=== PATIENT | male | born 1945 | race Caucasian/White ===

== ENCOUNTER 2016-09-30 12:32 | Emergency (ER) | payer MEDICARE, BC ==
[2016-09-30] MEDS ORDERED: DIPH/PERTUSS(ACELL)/TETANUS VAC/PF 0.5 ML SYR (>=10YO) IM ONE (13:14)
--- NOTE | 2016-09-30 13:16 | ER Document Report ---
ED Medical Screen (RME) - General Chief Complaint: Laceration Stated Complaint: HAND LACERATION Time Seen by Provider: 09/30/16 13:12 Mode of Arrival: Ambulatory Information source: Patient Notes: 71 yo male fell backwards with arms outstretched, hyperextending all the fingers and causing osei laceration. Tetanus is not current. TRAVEL OUTSIDE OF THE [place] IN LAST 30 DAYS: No - Related Data Allergies/Adverse Reactions: No Known Allergies Allergy (Unverified 09/30/16 13:00) Past Medical History Renal/ Medical History: Denies: Hx Peritoneal Dialysis Physical Exam - Vital signs Vitals: Temp Pulse Resp BP Pulse Ox 98.1 F 78 12 142/90 H 96 09/30/16 12:37 09/30/16 12:37 09/30/16 12:37 09/30/16 12:37 09/30/16 12:37 Course - Vital Signs Vital signs: Temp Pulse Resp BP Pulse Ox 98.1 F 78 12 142/90 H 96 09/30/16 12:37 09/30/16 12:37 09/30/16 12:37 09/30/16 12:37 09/30/16 12:37
--- NOTE | 2016-09-30 13:58 | ER Document Report ---
ED Wound - General Chief Complaint: Laceration Stated Complaint: HAND LACERATION Time Seen by Provider: 09/30/16 13:12 Mode of Arrival: Ambulatory Information source: Patient Notes: 71 yo male tripped on folded chair legs, fell backwards with arms outstretched, hyperextending all the right fingers and causing osei laceration. Tetanus is not current. TRAVEL OUTSIDE OF THE [place] IN LAST 30 DAYS: No - Related Data Allergies/Adverse Reactions: No Known Allergies Allergy (Unverified 09/30/16 13:00) Past Medical History - General Information source: Patient - Social History Smoking Status: Never Smoker Frequency of alcohol use: None Drug Abuse: None Lives with: Spouse/Significant other Family History: Reviewed & Not Pertinent Patient has suicidal ideation: No Patient has homicidal ideation: No - Past Medical History Cardiac Medical History: Reports: Hx Atrial Fibrillation - xeralto, Hx Hypertension Renal/ Medical History: Denies: Hx Peritoneal Dialysis Past Surgical History: Reports: Hx Cardiac Catheterization - ablation, Hx Orthopedic Surgery - knee Review of Systems - Review of Systems Constitutional: No symptoms reported EENT: No symptoms reported Cardiovascular: No symptoms reported Respiratory: No symptoms reported Gastrointestinal: No symptoms reported Genitourinary: No symptoms reported Male Genitourinary: No symptoms reported Musculoskeletal: See HPI Skin: See HPI Hematologic/Lymphatic: No symptoms reported Neurological/Psychological: No symptoms reported Physical Exam - Vital signs Vitals: Temp Pulse Resp BP Pulse Ox 98.1 F 78 12 142/90 H 96 09/30/16 12:37 09/30/16 12:37 09/30/16 12:37 09/30/16 12:37 09/30/16 12:37 Interpretation: Normal - General General appearance: Appears well, Alert - HEENT Head: Normocephalic, Atraumatic Eyes: Normal Pupils: PERRL Neck: Supple - Respiratory Respiratory status: No respiratory distress Chest status: Nontender Breath sounds: Normal Chest palpation: Normal - Cardiovascular Rhythm: Regular Heart sounds: Normal auscultation Murmur: No - Back Back: Normal, Nontender - Extremities General upper extremity: Normal inspection, Nontender, Normal color, Normal ROM , Normal temperature General lower extremity: Normal inspection, Nontender, Normal color, Normal ROM , Normal temperature, Normal weight bearing. No: Pura's sign Hand: Tender - 8 cm laceration right palm over the 2-4th MCP joints, FROM , N/V intact, all flexor tendons are intact, Abrasion - left dorsal hand, FROM, Laceration - Neurological Neuro grossly intact: Yes Cognition: Normal Orientation: AAOx4 [place] Coma Scale Eye Opening: Spontaneous [place] Coma Scale Verbal: Oriented [place] Coma Scale Motor: Obeys Commands [place] Coma Scale Total: 15 Speech: Normal Motor strength normal: LUE, RUE, LLE, RLE Sensory: Normal - Psychological Associated symptoms: Normal affect, Normal mood - Skin Skin Temperature: Warm Skin Moisture: Dry Skin Color: Normal Location of irregularity: Extremities Notes: see above Course - Re-evaluation Re-evalutation: 09/30/16 xray is negative per radiologist - Vital Signs Vital signs: Temp Pulse Resp BP Pulse Ox 98.1 F 69 17 128/71 H 98 09/30/16 12:37 09/30/16 16:13 09/30/16 16:13 09/30/16 16:13 09/30/16 16:13 Procedures - Laceration/Wound Repair Right Hand Time completed: 15:37 Wound length (cm): 8 Wound's Depth, Shape: Linear, Other - to sub q adipose only, no tendon exposure Anesthetic type: 1% Lidocaine Volume Anesthetic (mLs): 11 Wound explored: Clean Irrigated w/ Saline (mLs): 500 Wound Repaired With: Sutures Suture Size/Type: 3:0, Nylon Number of Sutures: 9 - vertical mattress Layer Closure?: No Post-procedure NV exam normal: Yes Complications: Yes Discharge - Discharge Clinical Impression: right hand laceration repair Condition: Good Disposition: HOME, SELF-CARE Instructions: Tetanus Immunization Given ([facility]), Laceration Care ([facility]), Antibiotic Ointment Protection ([facility]) Additional Instructions: elevate today keep the dressing on for 2 days unless increased pain, concerns keep clean and dry watch for signs of infection, red, hot, pus, swelling suture removal in 12 days Please complete the patient satisfaction survey if you get one, and return it.. If you do not receive a survey, then you can go to the [facility] website, [email or web address] and place your comments about your very good care. Thank you very much. It was a pleasure being your medical provider today. Prescriptions: Hydrocodone Bit/Acetaminophen [Hydrocodon-Acetaminophen 5-325] 1 each PO Q4HP PRN #15 tablet PRN Reason: Referrals: GENE NAVARRO MD [Primary Care Provider] - Follow up as needed
[2016-09-30] MEDS ORDERED: LIDOCAINE 1% INJ-PF (10 MG/ML) 30 ML SDV INJ ONE (14:01)
--- NOTE | 2016-09-30 14:38 | RADIOLOGY REPORT (SQ) ---
EXAM DESCRIPTION: HAND RIGHT 3 VIEWS COMPLETED DATE/TIME: 09/30/2016 1:49 pm REASON FOR STUDY: FOOSH, laceration, MC swelling COMPARISON: None. EXAM PARAMETERS: NUMBER OF VIEWS: Three views. TECHNIQUE: AP, lateral and oblique radiographic images acquired of the right hand. LIMITATIONS: None. FINDINGS: MINERALIZATION: Normal. BONES: No acute fracture or dislocation. No worrisome bone lesions. JOINTS: No effusions. SOFT TISSUES: No soft tissue swelling. No foreign body. OTHER: No other significant finding. IMPRESSION: NO RADIOGRAPHIC EVIDENCE OF ACUTE INJURY. TECHNICAL DOCUMENTATION: JOB ID: [id number] [employer]- All Rights Reserved
[2016-09-30 16:14] VITALS: BP 128/71
== END 2016-09-30 16:13 | disposition home or self-care (01) ==
LOC: ER 12:32
PROC: 0HQFXZZ Repair Right Hand Skin, External Approach (ICD-10-PCS; principal; 2016-09-30)
DX: S61.411A Laceration without foreign body of right hand, initial encounter (principal); W01.0XXA Fall on same level from slipping, tripping and stumbling without subsequent striking against object, initial encounter; Z23 Encounter for immunization; I48.91 Unspecified atrial fibrillation; I10 Essential (primary) hypertension; Z79.02 Long term (current) use of antithrombotics/antiplatelets
CPT/HCPCS: 12004; 99283; 90471; 73130; 90715; J3490

== ENCOUNTER 2017-02-24 17:55 | Emergency (ER) | payer MEDICARE, BC ==
[2017-02-24 18:07] VITALS: BP 126/84
--- NOTE | 2017-02-24 19:35 | RADIOLOGY REPORT (SQ) ---
EXAM DESCRIPTION: FOREARM LEFT COMPLETED DATE/TIME: 02/24/2017 7:17 pm REASON FOR STUDY: arm pain. COMPARISON: None. NUMBER OF VIEWS: Two views. TECHNIQUE: Two radiographic images acquired of the left forearm, including elbow and wrist in at [address] one projection. LIMITATIONS: None. FINDINGS: MINERALIZATION: Normal. BONES: No acute fracture. No worrisome bone lesions. SOFT TISSUES: No obvious swelling or foreign body. OTHER: No other significant finding. IMPRESSION: NEGATIVE STUDY OF THE LEFT FOREARM. NO RADIOGRAPHIC EVIDENCE OF ACUTE INJURY. TECHNICAL DOCUMENTATION: JOB ID: [id number] [employer]- All Rights Reserved
--- NOTE | 2017-02-24 19:35 | RADIOLOGY REPORT (SQ) ---
EXAM DESCRIPTION: HUMERUS LEFT COMPLETED DATE/TIME: 02/24/2017 7:17 pm REASON FOR STUDY: flacid arm COMPARISON: None. NUMBER OF VIEWS: Two views. TECHNIQUE: Two radiographic images were acquired of the left humerus to include elbow and shoulder i n at least one projection. LIMITATIONS: None. FINDINGS: MINERALIZATION: Normal. BONES: No acute fracture or dislocation. No worrisome bone lesions. SOFT TISSUES: No obvious swelling or foreign body. OTHER: No other significant finding. IMPRESSION: NEGATIVE STUDY OF THE LEFT HUMERUS. NO RADIOGRAPHIC EVIDENCE OF ACUTE INJURY. TECHNICAL DOCUMENTATION: JOB ID: [id number] [employer]- All Rights Reserved
--- NOTE | 2017-02-24 20:22 | ER Document Report ---
ED Extremity Problem, Upper - General Chief Complaint: Arm Injury Stated Complaint: LEFT ARM PAIN Time Seen by Provider: 02/24/17 18:46 Mode of Arrival: Ambulatory Information source: Patient, Relative Notes: Patient is a 71-year-old male comes emergency room complaining of inability to raise his left arm. Patient states that he was helping his move some and tables around any lifting with his left arm and it all of a sudden went limp on him. He felt a snap and then he was unable to lift the arm any further and the table drop. He denies any other injuries denies ever hurting this area before. Also states that this was not a very heavy and table. TRAVEL OUTSIDE OF THE [place] IN LAST 30 DAYS: No - HPI Patient complains to provider of: Injury, Arm Onset: Just prior to arrival Recent injury: Yes Where: Home Quality of pain: Achy Severity of pain: Moderate, Persistent, Still present Pain Level: 3 Context: Other - Lifting Associated symptoms: None Exacerbated by: Movement Relieved by: Positioning Similar symptoms previously: No Recently seen / treated by doctor: No - Related Data Allergies/Adverse Reactions: No Known Allergies Allergy (Verified 02/24/17 18:00) Past Medical History - General Information source: Patient, Relative - Social History Smoking Status: Never Smoker Cigarette use (# per day): No Chew tobacco use (# tins/day): No Smoking Education Provided: No Frequency of alcohol use: None Drug Abuse: None Family History: Reviewed & Not Pertinent Patient has suicidal ideation: No Patient has homicidal ideation: No - Past Medical History Cardiac Medical History: Reports: Hx Atrial Fibrillation - xeralto, Hx Hypertension Renal/ Medical History: Denies: Hx Peritoneal Dialysis Past Surgical History: Reports: Hx Cardiac Catheterization - ablation, Hx Orthopedic Surgery - knee Review of Systems - Review of Systems Constitutional: No symptoms reported EENT: No symptoms reported Cardiovascular: No symptoms reported Respiratory: No symptoms reported Gastrointestinal: No symptoms reported Genitourinary: No symptoms reported Male Genitourinary: No symptoms reported Musculoskeletal: Muscle pain, Muscle stiffness Skin: No symptoms reported Hematologic/Lymphatic: No symptoms reported Neurological/Psychological: No symptoms reported -: Yes All other systems reviewed and negative Physical Exam - Vital signs Vitals: Temp Pulse Resp BP Pulse Ox 98.6 F 93 14 126/84 H 94 02/24/17 18:06 02/24/17 18:06 02/24/17 18:06 02/24/17 18:06 02/24/17 18:06 Interpretation: Normal - General General appearance: Alert, Other - Uncomfortable appearing - Respiratory Respiratory status: No respiratory distress Chest status: Nontender Breath sounds: Normal. No: Decreased air movement, Nonproductive cough, Productive cough, Rales, Rhonchi, Stridor, Wheezing, Other - Cardiovascular Rhythm: Regular Heart sounds: Normal auscultation Murmur: No - Extremities General upper extremity: Tender, Normal color. No: Normal inspection, Nontender , Edema, Normal ROM, Normal strength, Normal temperature, Other General lower extremity: Normal inspection, Normal strength Arm: Tender, Instability, Other - Examination of the left arm shows that patient does not have the ability to flex the arm. At prwesent there is not a deformity one would expect with a biceps tear. but in any attempt to flex the left arm shows no biceps action. Vascular exam is normal.. No: Normal, Nontender, Abrasion, Deformity, Ecchymosis, Laceration Elbow: Tender. 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 - Neurological Neuro grossly intact: Yes Cognition: Normal Orientation: AAOx4 [place] Coma Scale Eye Opening: Spontaneous [place] Coma Scale Verbal: Oriented [place] Coma Scale Motor: Obeys Commands [place] Coma Scale Total: 15 Speech: Normal - Skin Skin Temperature: Warm Skin Moisture: Dry Skin Color: Normal, [place] Course - Vital Signs Vital signs: Temp Pulse Resp BP Pulse Ox 98.6 F 93 14 126/84 H 94 02/24/17 18:06 02/24/17 18:06 02/24/17 18:06 02/24/17 18:06 02/24/17 18:06 - Transfer of Care Notes: 02/28/17 10:57 I discussed the findings with Dr Martinez and he agrees thst splinting and follow up with ortho. Procedures - Immobilization Left Posterior Elbow Time completed: 20:17 Pre-Proc Neuro Vasc Exam: Normal Immobilizer type: Long arm posterior Performed by: PCT Post-Proc Neuro Vasc Exam: Normal Alignment checked and good: Yes Discharge - Discharge Clinical Impression: Internal derangement of elbow Condition: Good Disposition: HOME, SELF-CARE Additional Instructions: Tendon Strain You have strained a tendon. "Strain" means stretching and partial tearing of the fibers of the tendon. This often occurs with strenuous exertion, or during an injury that suddenly stretches the tendon. The seriousness of a strain varies. Some strains heal within days, others cause problems for months. X-rays don't show a tendon strain. X-rays are taken only if symptoms suggest that a fracture could be present. The usual treatment of a tendon strain is rest and ice packs. Sometimes a sling, splint, or crutches may be necessary to rest the tendon. The area can be used again once pain subsides. Severe strains require a special exercise and stretching program to prevent permanent stiffness and disability. Your doctor will advise you if this will be necessary. Call the doctor immediately if pain or swelling becomes severe, or if numbness or discoloration develop. As we discussed I believe that Soma you have caused a disruption in either your biceps brachii muscle at its insertion point or you have a tendon rupture from lifting. At this point we are leaving you in the splint at all times he may ice down through it 3 times a day. And use pain medication as needed. I have given you the name of the orthopedist on-call he is associated with [facility] orthopedics as is Dr. Chiang you may contact her office in the morning to see when they want to see you. Should you have any concerns or problems return to ER for a recheck. Prescriptions: Oxycodone HCl/Acetaminophen [Percocet 7.5-325 mg Tablet] 1 each PO ASDIR PRN # 20 tablet PRN Reason: Referrals: FERNY NAVARRO MD [Primary Care Provider] - Follow up as needed JEROME TESFAYE MD [ACTIVE STAFF] - Follow up as needed
== END 2017-02-24 20:35 | disposition home or self-care (01) ==
LOC: ER 17:55
DX: S59.909A Unspecified injury of unspecified elbow, initial encounter (principal); M79.602 Pain in left arm; X50.0XXA Overexertion from strenuous movement or load, initial encounter; Y93.89 Activity, other specified; Y92.009 Unspecified place in unspecified non-institutional (private) residence as the place of occurrence of the external cause; I10 Essential (primary) hypertension
CPT/HCPCS: 99283

== ENCOUNTER → 2017-02-25 | Outpatient (CLI) | payer MEDICARE, BC ==
--- NOTE | 2017-02-25 16:39 | RADIOLOGY REPORT (SQ) ---
EXAM DESCRIPTION: MRI LT UPPER JOINT WITHOUT COMPLETED DATE/TIME: 02/25/2017 4:07 pm REASON FOR STUDY: S46.119A STRAIN OF MUSC/FASC/TEND LONG HEAD OF BICEPS, UNSP ARM, INIT S46.119A ST RAIN OF MUSC/FASC/TEND LONG HEAD OF BICEPS, UNSP COMPARISON: Left forearm and humerus radiographs 02/24/2017 TECHNIQUE: Left elbow images acquired and stored on PACS. Multiplanar images to include fat sensitiv e sequences as T1, fluid sensitive sequences as T2/STIR, cartilage sensitive sequences as FSPD, and g radient echo sequences. LIMITATIONS: None. FINDINGS: There is a full-thickness tear of the distal biceps tendon, with proximal retraction of th e tendon and musculotendinous junction. There is a 5 cm gap in the tendon between its proximal end a nd the residual few fibers attached to the radial tuberosity. There is edema in the distal biceps muscle at the musculotendinous junction, and edema in the deep ti ssues of the antecubital fossa. No radial tuberosity avulsion fracture. These findings are best shown on axial STIR images 7-33 and sagittal STIR images 13 through 18. BONE MARROW: No alteration of signal to suggest marrow replacement or edema. No occult fracture. No l arge osteophytes. JOINT EFFUSION: None noted. No loose bodies. ARTICULAR SURFACES: Normal. MEDIAL COLLATERAL LIGAMENT COMPLEX: Intact without edema or tear. MEDIAL EPICONDYLE AND COMMON FLEXOR TENDON: No tendinopathy. No partial or full-thickness tear. LATERAL COLLATERAL LIGAMENT: Intact without edema or tear. LATERAL EPICONDYLE AND COMMON EXTENSOR TENDON: No tendinopathy. No partial or full-thickness tear. LATERAL ULNAR COLLATERAL LIGAMENT: Intact without evidence for tear. TRICEPS TENDON: Intact. ULNAR NERVE: Well-visualized without edema or encroachment. ADJACENT SOFT TISSUES: No masses or edema. OTHER: No other significant finding. IMPRESSION: Full-thickness left distal biceps tendon tear TECHNICAL DOCUMENTATION: JOB ID: [id number] [employer]- All Rights Reserved
== END ==
LOC: RAD 15:30
PROVIDERS: ATTEND Orthopaedic Surgery Sports Medicine
DX: S46.112A Strain of muscle, fascia and tendon of long head of biceps, left arm, initial encounter (principal); X58.XXXA Exposure to other specified factors, initial encounter

== ENCOUNTER → 2017-03-01 | Outpatient (CLI) | payer MEDICARE, BC ==
[2017-03-01 12:29] LABS: ABSOLUTE EOSINOPHILS # (AUTO) 0.1 10^3/uL (0.0-0.6); ABSOLUTE LYMPHOCYTES (AUTO) 1.2 10^3/uL (0.5-4.7); ABSOLUTE MONOCYTES (AUTO) 0.4 10^3/uL (0.1-1.4); ABSOLUTE NEUT (AUTO) 4.2 10^3/uL (1.7-8.2); BASOPHILS % (AUTO) 0.7 % (0-2); EOSINOPHILS % (AUTO) 2.3 % (0-6); HEMATOCRIT 44.4 % (37.9-51.0); HEMOGLOBIN 15.2 g/dL (13.5-17.0); HGB HCT DIFFERENCE 1.2; LYMPHOCYTES % (AUTO) 20.3 % (13-45); MEAN CORPUSCULAR HEMOGLOBIN 32.3 pg (27.0-33.4); MEAN CORPUSCULAR HGB CONC 34.3 g/dL (32.0-36.0); MEAN CORPUSCULAR VOLUME 94 fl (80-97); MONOCYTES % (AUTO) 6.7 % (3-13); RED BLOOD COUNT 4.71 10^6/uL (4.35-5.55); RED CELL DISTRIBUTION WIDTH 14.7 % (11.5-14.0)
[2017-03-01 13:00] LABS: ALANINE AMINOTRANSFERASE 39 U/L (21-72); ALKALINE PHOSPHATASE 62 U/L (38-126); ANION GAP 9 (5-19); ASPARTATE AMINO TRANSFERASE 24 U/L (17-59); BILIRUBIN,DIRECT 0.3 mg/dL (0.0-0.4); BILIRUBIN,TOTAL 0.4 mg/dL (0.2-1.3); BLOOD UREA NITROGEN 8 mg/dL (7-20); CALCIUM 9.2 mg/dL (8.4-10.2); CARBON DIOXIDE 31 mmol/L (22-30); CHLORIDE 99 mmol/L (98-107); CREATININE RESULT 0.82 mg/dL (0.52-1.25); GLUCOSE 97 mg/dL (75-110); POTASSIUM 4.5 mmol/L (3.6-5.0); SODIUM 139.4 mmol/L (137-145); TOTAL PROTEIN 6.9 g/dL (6.3-8.2)
--- NOTE | 2017-03-01 13:04 | EKG REPORT ---
SEVERITY:- NORMAL ECG - SINUS RHYTHM : Confirmed by: Néstor Monahan MD 01-Mar-2017 13:04:02
== END ==
LOC: OD 11:22
PROVIDERS: ATTEND Orthopaedic Surgery Sports Medicine
DX: I10 Essential (primary) hypertension (principal); I48.91 Unspecified atrial fibrillation; Z11.2 Encounter for screening for other bacterial diseases
CPT/HCPCS: 36415; 80053; 85025; 87070; 93005; 93010

== ENCOUNTER → 2019-04-06 | Outpatient (CLI) | payer MEDICARE, BC ==
--- NOTE | 2019-04-07 12:46 | RADIOLOGY REPORT (SQ) ---
EXAM DESCRIPTION: MRI LT UPPER JOINT WITHOUT COMPLETED DATE/TIME: 04/06/2019 9:58 am REASON FOR STUDY: M25.512 PAIN IN LEFT SHOULDER M25.512 PAIN IN LEFT SHOULDER COMPARISON: None. TECHNIQUE: Non arthrogram MRI of the left shoulder images acquired and stored on PACS. Multiplanar i maging to include fat sensitive sequences such as T1, water sensitive sequences such as FST2/STIR, ca rtilage sensitive sequences such as FSPD/gradient-echo sequences. LIMITATIONS: None. FINDINGS: BONE MARROW AND CORTEX: No worrisome bone lesions or marrow replacement. No occult fractur es. JOINT OR BURSAL EFFUSION: No significant joint or bursal fluid. No suggestion of loose bodies. GLENO-HUMERAL ARTICULATION: Normal articulation. No subluxation. No cystic change. No osteophytes or cartilage loss. ACROMION AND AC JOINT: Type 2 acromion with moderate acromioclavicular joint bony spurring narrowing the subacromial space, best shown on coronal image 10 and sagittal image 12. ROTATOR CUFF AND INTERVAL: There is a small full-thickness tear and moderate-sized high-grade undersu rface partial thickness tear of the anterior half supraspinatus tendon, best shown on sagittal images 4-6 and coronal images 7-9. Infraspinatus is intact. Subscapularis intact. No rotator interval te ar. No rotator interval thickening to suggest adhesive capsulitis. LABRUM AND BICEPS LABRAL COMPLEX: Intra-articular long head biceps tendon high signal from tendinop athy. No gross labral tear or paralabral cyst. REMAINDER OF LABRUM AND IGHL : No gross tear or paralabral cyst formation. Labral evaluation is less than optimal without joint distention. No thickening of IGHL to suggest adhesive capsulitis. PERIARTICULAR AND ADJACENT SOFT TISSUES: No masses or abnormal nodes. OTHER: No other significant finding. IMPRESSION: Acromioclavicular joint hypertrophy. Complex tear anterior half supraspinatus tendon Intra-articular long head biceps tendinopathy TECHNICAL DOCUMENTATION: JOB ID: [id number] [employer]- All Rights Reserved Reading location - IP/workstation name: [facility]
== END ==
LOC: RAD 08:52
PROVIDERS: ATTEND Specialist/Technologist Athletic Trainer
DX: M75.122 Complete rotator cuff tear or rupture of left shoulder, not specified as traumatic (principal); M25.512 Pain in left shoulder

== ENCOUNTER 2019-06-27 19:15 | Observation (INO) | payer MEDICARE, BC ==
--- NOTE | 2019-06-27 19:55 | ER Document Report ---
ED Medical Screen (RME) - General Chief Complaint: Chest Pain Stated Complaint: CHEST PAIN Time Seen by Provider: 06/27/19 19:50 Primary Care Provider: VINNY DIAZ PA-C [Primary Care Provider] - Follow up as needed Information source: Patient Notes: Patient presents complaining of midsternal chest pain for the past hour and a half. Patient denies any cough cold symptoms nausea or vomiting. Patient denies any dyspnea. Patient does report a history of asthma, hypertension and A. fib. Patient has had a cardiac ablation and is on Xarelto. I have greeted and performed a rapid initial assessment of this patient. A comprehensive ED assessment and evaluation of the patient, analysis of test results and completion of the medical decision making process will be conducted by additional ED providers. TRAVEL OUTSIDE OF THE [place] IN LAST 30 DAYS: No - Related Data Allergies/Adverse Reactions: No Known Allergies Allergy (Verified 02/24/17 18:00) Past Medical History - Past Medical History Cardiac Medical History: Reports: Hx Atrial Fibrillation - xeralto, Hx Hypertension Renal/ Medical History: Denies: Hx Peritoneal Dialysis Past Surgical History: Reports: Hx Cardiac Catheterization - ablation, Hx Orthopedic Surgery - knee Physical Exam - Vital signs Vitals: Temp Pulse Resp BP Pulse Ox 98.1 F 79 18 146/90 H 96 06/27/19 19:25 06/27/19 19:25 06/27/19 19:25 06/27/19 19:25 06/27/19 19:25 - Respiratory Respiratory status: No respiratory distress Chest status: Tender Breath sounds: Normal - Cardiovascular Rhythm: Regular Heart sounds: S1 appreciated, S2 appreciated Course - Vital Signs Vital signs: Temp Pulse Resp BP Pulse Ox 98.1 F 79 18 146/90 H 96 06/27/19 19:25 06/27/19 19:25 06/27/19 19:25 06/27/19 19:25 06/27/19 19:25 Doctor's Discharge - Discharge Referrals: VINNY DIAZ PA-C [Primary Care Provider] - Follow up as needed
[2019-06-27 20:21] LABS: ABSOLUTE EOSINOPHILS # (AUTO) 0.1 10^3/uL (0.0-0.6); ABSOLUTE LYMPHOCYTES (AUTO) 1.6 10^3/uL (0.5-4.7); ABSOLUTE MONOCYTES (AUTO) 0.5 10^3/uL (0.1-1.4); ABSOLUTE NEUT (AUTO) 4.7 10^3/uL (1.7-8.2); BASOPHILS % (AUTO) 0.7 % (0-2); EOSINOPHILS % (AUTO) 1.5 % (0-6); HEMATOCRIT 44.5 % (37.9-51.0); HEMOGLOBIN 15.6 g/dL (13.5-17.0); LYMPHOCYTES % (AUTO) 22.7 % (13-45); MEAN CORPUSCULAR HEMOGLOBIN 32.2 pg (27.0-33.4); MEAN CORPUSCULAR VOLUME 92 fl (80-97); MONOCYTES % (AUTO) 6.9 % (3-13); PLATELET COUNT 177 10^3/uL (150-450); RED BLOOD COUNT 4.84 10^6/uL (4.35-5.55); RED CELL DISTRIBUTION WIDTH 14.1 % (11.5-14.0); SEGMENTED NEUTROPHILS % (AUTO) 68.2 % (42-78); TOTAL CELLS COUNTED % (AUTO) 100 %; WHITE BLOOD COUNT 6.9 10^3/uL (4.0-10.5)
[2019-06-27 20:42] LABS: ALBUMIN 4.2 g/dL (3.5-5.0); ALKALINE PHOSPHATASE 58 U/L (38-126); ANION GAP 7 (5-19); ASPARTATE AMINO TRANSFERASE 28 U/L (17-59); BILIRUBIN,TOTAL 0.6 mg/dL (0.2-1.3); BLOOD UREA NITROGEN 13 mg/dL (7-20); CALCIUM 9.1 mg/dL (8.4-10.2); CARBON DIOXIDE 30 mmol/L (22-30); CHLORIDE 100 mmol/L (98-107); GLUCOSE 96 mg/dL (75-110); POTASSIUM 4.1 mmol/L (3.6-5.0); TOTAL PROTEIN 7.2 g/dL (6.3-8.2)
--- NOTE | 2019-06-27 20:45 | RADIOLOGY REPORT (SQ) ---
EXAM DESCRIPTION: XR CHEST 2 VIEWS COMPLETED DATE/TME: 06/27/2019 19:53 CLINICAL HISTORY: 74 years Male cp COMPARISON: None. FINDINGS: The cardiomediastinal silhouette appears unremarkable. No consolidating infiltrates or pleural effusions. No pneumothorax. IMPRESSION: No acute abnormality is identified.
[2019-06-27] MEDS ORDERED: ASPIRIN 81 MG TABLET, CHEWABLE PO ONE (20:49)
--- NOTE | 2019-06-27 20:49 | ER Document Report ---
Entered by DARYL DRAPER SCRIBE 06/27/192025 Acting as scribe for:PJ QUINTANA, DO ED General <LEANNEMRATIR - Last Filed: 06/28/19 00:40> - General Information source: Patient TRAVEL OUTSIDE OF THE [place] IN LAST 30 DAYS: No - Related Data Home Medications: Xarelto. Alprazalam. Flovent. Montelukast. Omeprazole. Proair. Potasium. Qnasl. Spiroalactone. Trazadone. Trintellix <PJ QUINTANA - Last Filed: 06/28/19 14:25> - General Chief Complaint: Chest Pain Stated Complaint: CHEST PAIN Time Seen by Provider: 06/27/19 19:50 Notes: This 74-year-old male presents to the emergency department complaining of chest pain that began about 3 hours prior to arrival. Patient explains that "it feels like a big knot" in the center of his chest. Patient states that he woke up from a nap and about 5 minutes after getting up he felt chest pain for about 5-10 m inutes. Patient stated that at dinner he had no appetite which is not usual for him. Patient said that the chest pain would come and go throughout the afternoon with a total of around 12-20 episodes. Patient states that he has had some episodes of chest pain here in the emergency department but the chest pain has not been as bad as earlier. Patient denies shortness of breath, dyspnea, fever, diarrhea, nausea, cough and vomiting. Patient states that he walks 40 minutes a day at the gym but has not been to the gym for about 3 weeks. Patient is right-handed. (PJ QUINTANA) - Related Data Allergies/Adverse Reactions: No Known Allergies Allergy (Verified 02/24/17 18:00) Past Medical History - General Information source: Patient - Social History Smoking Status: Former Smoker Cigarette use (# per day): No Chew tobacco use (# tins/day): No Occupation: [employer] Lives with: Spouse/Significant other Family History: Reviewed & Not Pertinent Patient has suicidal ideation: No Patient has homicidal ideation: No - Past Medical History Cardiac Medical History: Reports: Hx Atrial Fibrillation - xarelto, Hx Hypertension Pulmonary Medical History: Reports: Other - Interstitial Lung Disease GI Medical History: Reports: Hx Gastroesophageal Reflux Disease Past Surgical History: Reports: Hx Cardiac Catheterization - ablation, Hx Orthopedic Surgery - knee <PJ QUINTANA - Last Filed: 06/28/19 14:25> Review of Systems - Review of Systems Constitutional: See HPI. denies: Fever EENT: No symptoms reported Cardiovascular: See HPI, Chest pain Respiratory: See HPI. denies: Cough, Hurts to breathe, Short of breath Gastrointestinal: See HPI. denies: Abdominal pain, Diarrhea, Nausea, Vomiting Genitourinary: No symptoms reported Male Genitourinary: No symptoms reported Musculoskeletal: No symptoms reported Skin: No symptoms reported Hematologic/Lymphatic: No symptoms reported Neurological/Psychological: No symptoms reported -: Yes All other systems reviewed and negative <PJ QUINTANA - Last Filed: 06/28/19 14:25> Physical Exam <PJ QUINTANA - Last Filed: 06/28/19 14:25> - Vital signs Vitals: Temp Pulse Resp BP Pulse Ox 98.1 F 79 18 146/90 H 96 06/27/19 19:25 06/27/19 19:25 06/27/19 19:25 06/27/19 19:25 06/27/19 19:25 - Notes Notes: Physical Exam: General: Alert, appears well. HEENT: Normocephalic. Atraumatic. PERRL. Extraocular movements intact. Oropharynx clear. Neck: Supple. Non-tender. Respiratory: No respiratory distress. Clear and equal breath sounds bilaterally. Cardiovascular: Regular rate and rhythm. Abdominal: Normal Inspection. Non-tender. No distension. Normal Bowel Sounds. Back: No gross abnormalities. Extremities: Moves all four extremities. Upper extremities: Normal inspection. Normal ROM. Lower extremities: Normal inspection. No edema. Normal ROM. Neurological: Normal cognition. AAOx4. Normal speech. Psychological: Normal affect. Normal Mood. Skin: Warm. Dry. Normal color. (PJ QUINTANA) Course - Laboratory Result Diagrams: 06/27/19 20:00 06/27/19 20:00 - Diagnostic Test Radiology reviewed: Image reviewed, Reports reviewed - Chest x-ray: No acute cardiopulmonary findings CT abdomen and pelvis with IV contrast: No acute intra-abdominal findings, distended gallbladder. Gallbladder ultrasound: Findings compatible with cholelithiasis with sludge, no evidence of cho lecystitis. - EKG Interpretation by Me EKG shows normal: Sinus rhythm - Rate of 80, no acute ST or T wave abnormalities noted. Interpretation: Normal electrocardiogram. <MARTIR PERDOMO - Last Filed: 06/28/19 00:40> - Laboratory Result Diagrams: 06/27/19 20:00 06/28/19 01:10 <PJ QUINTANA - Last Filed: 06/28/19 14:25> - Re-evaluation Re-evalutation: 06/27/19 23:06 I assumed care of this patient from Dr. Quintana. Patient presents with atypical chest discomfort, found to have elevated lipase and distended gallbladder on CT scan. Gallbladder ultrasound is ordered, will await the findings. 06/28/19 00:34 I reviewed the patient's imaging reveals a CT scan with distended gallbladder, no other acute findings. Gallbladder ultrasound was performed findings suggests cholelithiasis with sludge without evidence of acute cholecystitis. I have examined the patient found him to have a benign abdominal exam with good bowel sounds nondistended soft and nontender. Palpation in the right upper quadrant elicit 0 pain. Review the laboratory data reveals a lipase of 1149 with a bilirubin of 0.6. I discussed these findings with the patient and explained that while his symptoms have improved, the elevated lipase will require observation in the hospital for further evaluation and management. The patient is in agreement with this plan. Patient was discussed with the hospitalist, , he has agreed to admit the patient to telemetry for monitoring, rule out protocol as well as repeating lipase level, amylase, and troponins. (MARTIR PERDOMO) - Vital Signs Vital signs: Temp Pulse Resp BP Pulse Ox 98.2 F 72 18 132/92 H 94 06/28/19 11:41 06/28/19 11:41 06/28/19 11:41 06/28/19 11:41 06/28/19 11:41 - Laboratory Laboratory results interpreted by me: 06/27/19 06/27/19 06/27/19 20:00 20:00 20:00 RDW 14.1 H Sodium 136.9 L Lipase 1149.6 H Discharge - Discharge Admitting Provider: Veronika (Hospitalist) Unit Admitted: Telemetry <MARTIR PERDOMO - Last Filed: 06/28/19 00:40> <PJ QUINTANA - Last Filed: 06/28/19 14:25> - Discharge Clinical Impression: Elevated lipase Chest pain Qualifiers: Chest pain type: unspecified Qualified Code(s): R07.9 - Chest pain, unspecified Condition: Good Disposition: ADMITTED OBSERVATION I personally performed the services described in the documentation, reviewed and edited the documentation which was dictated to the scribe in my presence, and it accurately records my words and actions.
[2019-06-27] MEDS ORDERED: ONDANSETRON HCL INJ/PF 4 MG/2 ML SDV IV ONE (21:01)
[2019-06-27] MEDS ORDERED: MORPHINE SULFATE 10 MG/ML INJ IV ONE (21:01)
[2019-06-27] MEDS ORDERED: PANTOPRAZOLE SODIUM 40 MG VIAL IV ONE (21:47)
--- NOTE | 2019-06-27 22:23 | RADIOLOGY REPORT (SQ) ---
EXAM DESCRIPTION: CT ABDOMEN PELVIS WITH IV CONTRAST, CT CHEST WITH IV CONTRAST COMPLETED DATE/TME: 06/27/2019 9:46 PM CLINICAL HISTORY: epigastric pain COMPARISON: None Available. TECHNIQUE: Contiguous axial images of the chest, abdomen and pelvis were obtained followed by reconstruction images.This exam was performed according to our departmental dose-optimization program, which includes automated exposure control, adjustment of the mA and/or kV according to patient size and/or use of iterative reconstruction technique. FINDINGS: The aorta is of normal contour and tapering. There is no pericardial or pleural fluid collection. Linear opacities within the lungs may represent scar versus subsegmental atelectasis. There is atherosclerosis. There is no parenchymal consolidation or pneumothorax. The liver is of decreased attenuation compatible with fatty infiltration. The gallbladder is distended otherwise unremarkable by CT criteria. There is a right renal cyst. The spleen, pancreas and kidneys are otherwise within normal limits. There is no hydronephrosis or renal stones. Adrenal glands are within normal limits. Aorta is of normal caliber and tapering. There is no free fluid in the abdomen or pelvis. There is no bowel obstruction. There is no stranding of the mesenteric fat to suggest an inflammatory response. The appendix is within normal limits. There is no pericecal inflammation. There are diverticuli without CT evidence of acute diverticulitis. Linear areas of increased attenuation of the level of the anterior prostate gland could represent prior radiation seed placement. IMPRESSION: No acute intrathoracic abnormality. Distended gallbladder. Otherwise, unremarkable by CT criteria. Correlation with a sonogram could be helpful for further evaluation.
[2019-06-27] MEDS ORDERED: KETOROLAC TROMETHAMINE INJ/PF 30 MG/1 ML SDV IV ONE (23:32)
--- NOTE | 2019-06-27 23:35 | RADIOLOGY REPORT (SQ) ---
EXAM DESCRIPTION: US ABDOMEN LIMITED COMPLETED DATE/TME: 06/27/2019 22:37 CLINICAL HISTORY: 74 years Male Atypical chest pain/distended gallbladder on CT COMPARISON: 06/27/2019 CT. TECHNIQUE: Transabdominal grayscale imaging were performed to evaluate the right upper quadrant. FINDINGS: Visualized thickness the pancreas are unremarkable. Aorta is normal in caliber. Fatty infiltration of the liver. Liver is difficult to penetrate. Right kidney is unremarkable without hydronephrosis. Numerous shadowing calculi in the gallbladder. Common duct is normal in caliber. Sludge is also present in the gallbladder. Negative Aaron sign. The wall measures less than 2 mm. Patent hepatopedal portal vein IMPRESSION: Fatty infiltration of the liver Cholelithiasis and sludge without evidence of acute cholecystitis
[2019-06-28] MEDS ORDERED: HYDROMORPHONE HCL INJ/PF 2 MG/ML AMPULE IV ONE (00:17)
[2019-06-28] MEDS ORDERED: PROMETHAZINE HCL INJ 25 MG/1 ML VIAL IV PRN (01:29)
[2019-06-28] MEDS ORDERED: HYDRALAZINE HCL INJ/PF 20 MG/1 ML SDV IV PRN (01:29)
[2019-06-28] MEDS ORDERED: GUAIFENESIN SYRP 200 MG/10 ML UDC PO PRN (01:29)
[2019-06-28] MEDS ORDERED: MAGNESIUM HYDROXIDE SUSP 30 ML UDCUP PO PRN (01:29)
[2019-06-28] MEDS ORDERED: LORAZEPAM INJ 2 MG/1 ML VIAL IV PRN (01:29)
[2019-06-28] MEDS ORDERED: MAG HYDROX/AL HYDROX/SIMETH SUSP 30 ML UDCUP PO PRN (01:29)
[2019-06-28] MEDS ORDERED: MORPHINE SULFATE 10 MG/ML INJ IV PRN ×3 (01:29)
[2019-06-28 02:09] LABS: ALBUMIN 3.9 g/dL (3.5-5.0); ALKALINE PHOSPHATASE 49 U/L (38-126); ASPARTATE AMINO TRANSFERASE 27 U/L (17-59); BILIRUBIN,TOTAL 0.6 mg/dL (0.2-1.3); BLOOD UREA NITROGEN 12 mg/dL (7-20); CALCIUM 8.9 mg/dL (8.4-10.2); CHLORIDE 102 mmol/L (98-107); CREATINE KINASE 50 U/L (55-170); GLUCOSE 100 mg/dL (75-110); TOTAL PROTEIN 6.6 g/dL (6.3-8.2)
[2019-06-28 02:15] LABS: CARBON DIOXIDE 32 mmol/L (22-30)
[2019-06-28 02:16] LABS: ANION GAP 3 (5-19)
[2019-06-28 02:17] LABS: CREATINE KINASE MB 1.46 ng/mL (<4.55)
[2019-06-28 02:18] LABS: TROPONIN I < 0.012 ng/mL
--- NOTE | 2019-06-28 02:35 | PDOC H&P ---
History of Present Illness Admission Date/PCP: 06/28/19 00:45 FERNY NAVARRO MD Patient complains of: Chest pain History of Present Illness: ISRAEL BALL is a 74 year old male presented the emergency room with acute chest pain. He admits developing intermittent episodic knot-like tightness in his central chest 3 hours prior to his emergency room visit. The pain/tightness did not radiate and varied from moderate to severe in intensity from 1 episode to another. He admits a total of ~20 episodes each lasting for 5 to 10 minutes. He admits the associated symptom of decreased appetite but denies all other associated or accompanying signs and symptoms. He denies prior similar epis odes. He has not identified any aggravating or ameliorating factors for his chest pain/tightness. In the emergency room he was found to have an EKG not demonstrating acute myocardial ischemia or injury and cardiac enzymes in the normal range. Further evaluation ER revealed cholelithiasis without evidence of cholecystitis and elevated lipase at 1150. Patient was subsequently admitted to observation status for further evaluation treatment. Past Medical History Cardiac Medical History: Reports: Atrial Fibrillation - Chronic anticoagulation with Xarelto, Hypertension Denies: Coronary Artery Disease, Myocardial Infarction Pulmonary Medical History: Reports: Other - Interstitial Lung Disease Denies: Asthma, Chronic Obstructive Pulmonary Disease (COPD) EENT Medical History: Denies: Cataracts, Ears - Hearing aids Neurological Medical History: Denies: Hemorrhagic CVA, Ischemic CVA, Seizures Endocrine Medical History: Denies: Diabetes Mellitus Type 1, Diabetes Mellitus Type 2, Hyperthyroidism, Hypothyroidism Renal/ Medical History: Denies: Chronic Kidney Disease, Nephrolithiasis Malignancy Medical History: Reports: Skin Cancer GI Medical History: Reports: Gastroesophageal Reflux Disease Denies: Cirrhosis, Hepatitis Musculoskeltal Medical History: Denies: Arthritis, Gout Skin Medical History: Denies: Eczema, Psoriasis Psychiatric Medical History: Denies: Alcohol Dependency, Substance Abuse, Tobacco Dependency Traumatic Medical History: Reports: None Hematology: Denies: Anemia, Bleeding Tendencies Infectious Medical History: Reports: None Past Surgical History Past Surgical History: Reports: Cardiac Catheterization - ablation, Orthopedic Surgery - Knee surgery, unsuccessful tendon repair left UE, Other - Dental implants and removal of same, skin cancer excisions Social History Information Source: Patient Lives with: Spouse/Significant other Smoking Status: Former Smoker Electronic Cigarette use?: No Frequency of Alcohol Use: None Hx Recreational Drug Use: No Drugs: None Hx Prescription Drug Abuse: No - Advance Directive Resuscitation Status: Full Code Surrogate healthcare decision maker:: Chasity Ball Family History Family History: CAD, Hypertension, Malignancy. denies: DM Parental Family History Reviewed: Yes Children Family History Reviewed: No Sibling(s) Family History Reviewed.: Yes Medication/Allergy Home Medications: Hydrocodone Bit/Acetaminophen [Hydrocodon-Acetaminophen 5-325] 1 each PO Q4HP PRN #15 tablet 09/30/16 Oxycodone HCl/Acetaminophen [Percocet 7.5-325 mg Tablet] 1 each PO ASDIR PRN #20 tablet 02/24/17 Allergies/Adverse Reactions: No Known Allergies Allergy (Verified 02/24/17 18:00) Review of Systems Constitutional: ABSENT: chills, fever(s) Eyes: ABSENT: visual disturbances, other - Eye pain Ears: ABSENT: hearing changes, other - Ear pain Nose, Mouth, and Throat: PRESENT: mouth pain - Recent dental implant removal. ABSENT: headache(s), sore throat Cardiovascular: PRESENT: as per HPI, chest pain. ABSENT: dyspnea on exertion, orthropnea, palpitations Respiratory: ABSENT: cough, dyspnea, hemoptysis Gastrointestinal: ABSENT: abdominal pain, constipation, diarrhea, nausea, vomiting Genitourinary: ABSENT: difficulty urinating, dysuria, hematuria Musculoskeletal: ABSENT: back pain, joint swelling Integumentary: ABSENT: diaphoresis, pruritus, rash Neurological: ABSENT: confusion, convulsions, focal weakness, memory loss, syncope Psychiatric: ABSENT: anxiety, depression Endocrine: ABSENT: cold intolerance, heat intolerance, polydipsia, polyphagia, polyuria Hematologic/Lymphatic: ABSENT: easy bleeding, easy bruising Allergic/Immunologic: ABSENT: seasonal rhinorrhea Physical Exam Vital Signs: Temp Pulse Resp BP Pulse Ox 98.1 F 79 16 136/87 H 95 06/27/19 19:25 06/27/19 19:25 06/27/19 22:12 06/27/19 22:12 06/27/19 22:12 Intake & Output 06/26/19 06/27/19 06/28/19 23:59 23:59 23:59 Weight 95.8 kg General appearance: PRESENT: no acute distress, cooperative Head exam: PRESENT: atraumatic, normocephalic Eye exam: ABSENT: conjunctival injection, scleral icterus Ear exam: PRESENT: normal external ear exam. ABSENT: bleeding, drainage Mouth exam: PRESENT: dry mucosa, neck supple Neck exam: ABSENT: thyromegaly, tracheal deviation Respiratory exam: PRESENT: clear to auscultation joaquian, symmetrical, unlabored Cardiovascular exam: PRESENT: RRR. ABSENT: clicks, gallop, rubs Pulses: PRESENT: normal radial pulses, normal dorsalis pedis pul. ABSENT: +1 pedal pulses bilateral Vascular exam: PRESENT: normal capillary refill. ABSENT: pallor GI/Abdominal exam: PRESENT: normal bowel sounds, soft Rectal exam: PRESENT: deferred Extremities exam: ABSENT: joint swelling, pedal edema Musculoskeletal exam: ABSENT: deformity, dislocation Neurological exam: PRESENT: alert, oriented to person, oriented to place, oriented to time, oriented to situation, CN II-XII grossly intact. ABSENT: motor sensory deficit Psychiatric exam: PRESENT: appropriate affect, normal mood Skin exam: PRESENT: dry, intact, warm. ABSENT: jaundice, rash, urticaria Results Laboratory Results: 06/27/19 20:00 06/27/19 20:00 06/27/19 06/27/19 06/27/19 20:00 20:00 20:00 WBC 6.9 RBC 4.84 Hgb 15.6 Hct 44.5 MCV 92 MCH 32.2 MCHC 35.0 RDW 14.1 H Plt Count 177 Seg Neutrophils % 68.2 Sodium 136.9 L Potassium 4.1 Chloride 100 Carbon Dioxide 30 Anion Gap 7 BUN 13 Creatinine 0.81 Est GFR ( Amer) > 60 Glucose 96 Calcium 9.1 Magnesium 1.7 Total Bilirubin 0.6 AST 28 Alkaline Phosphatase 58 Total Protein 7.2 Albumin 4.2 Lipase 1149.6 H TSH 06/27/19 20:16 WBC RBC Hgb Hct MCV MCH MCHC RDW Plt Count Seg Neutrophils % Sodium Potassium Chloride Carbon Dioxide Anion Gap BUN Creatinine Est GFR ( Amer) Glucose Calcium Magnesium Total Bilirubin AST Alkaline Phosphatase Total Protein Albumin Lipase TSH 1.45 06/27/19 20:00 Troponin I < 0.012 Impressions: Chest X-Ray 06/27/19 19:53 IMPRESSION: No acute abnormality is identified. Abdomen/Pelvis CT 06/27/19 21:01 IMPRESSION: No acute intrathoracic abnormality. Distended gallbladder. Otherwise, unremarkable by CT criteria. Correlation with a sonogram could be helpful for further evaluation. Chest CT 06/27/19 21:01 IMPRESSION: No acute intrathoracic abnormality. Distended gallbladder. Otherwise, unremarkable by CT criteria. Correlation with a sonogram could be helpful for further evaluation. Abdomen Ultrasound 06/27/19 22:37 IMPRESSION: Fatty infiltration of the liver Cholelithiasis and sludge without evidence of acute cholecystitis Assessment and Plan - Diagnosis (1) Chest pain Qualifiers: Chest pain type: unspecified Qualified Code(s): R07.9 - Chest pain, unspecified Is this a current diagnosis for this admission?: Yes (2) Elevated lipase Is this a current diagnosis for this admission?: Yes (3) GERD (gastroesophageal reflux disease) Qualifiers: Esophagitis presence: esophagitis presence not specified Qualified Code(s): K21.9 - Gastro-esophageal reflux disease without esophagitis Is this a current diagnosis for this admission?: Yes (4) Hypertension Qualifiers: Hypertension type: essential hypertension Qualified Code(s): I10 - Essential (primary) hypertension Is this a current diagnosis for this admission?: Yes (5) Chronic atrial fibrillation Is this a current diagnosis for this admission?: Yes (6) Chronic anticoagulation Is this a current diagnosis for this admission?: Yes - Plan Summary Summary: Patient is admitted observation status on the telemetry floor. He will receive routine supportive and symptomatic cares. Serial cardiac enzymes will be performed. Serial amylase and lipase determinations will be performed. A cardiology consultation with Dr. Loera will be obtained. Patient will use morphine sulfate 2 to 4 mg IV every 2 hours as needed for control of chest pain. He will use Ativan 1 mg IV every 4 hours as needed anxiety or restlessness. CBC's, metabolic profiles, magnesium levels and repeat EKG's will be performed as required. He will be placed on a cardiac diet. A routine surgical consultation will be obtained with Dr. Peters for future management of the patient's cholelithiasis. - Time Time Spent with patient: 15-24 minutes Medications reviewed and adjusted accordingly: Yes Anticipated discharge: Home - Inpatient Certification Based on my medical assessment, after consideration of the patient's comorbidities, presenting symptoms, or acuity I expect that the services needed warrant INPATIENT care.: No I certify that my determination is in accordance with my understanding of Medicare's requirements for reasonable and necessary INPATIENT services [42 CFR 412.3e].: No
[2019-06-28] MEDS: ACETAMINOPHEN 325 MG TABLET PO PRN ×3 (03:58→14:55)
[2019-06-28] MEDS ORDERED: HEPARIN SOD (PORCINE) 5,000 UNIT/ML 1 ML VIAL SUBCUT SCH (06:00)
[2019-06-28] MEDS: PANTOPRAZOLE SODIUM 40 MG TABLET.DR PO SCH ×2 (06:47→17:00)
--- NOTE | 2019-06-28 07:30 | PDOC CONSULTATION ---
Consultation Consult Date: 06/28/19 Provider Consulted: BIBI CHAIDEZ Consult reason:: Gallstones History of Present Illness Admission Date/PCP: 06/28/19 00:45 FERNY NAVARRO MD Patient complains of: Chest pains History of Present Illness: ISRAEL BALL is a 74 year old male started complaining of dull anterior chest pains around 6 PM last night. He did have some pizza for lunch but did not eat anything for dinner. He denies any nausea no vomiting fever nor chills. He had a CT scan of the chest and abdomen which did not show anything significant. His amylase however is elevated to 1115. Subsequent ultrasound of the gallbladder showed gallstones with sludge with no evidence of acute cholecystitis. Past Medical History Cardiac Medical History: Reports: Atrial Fibrillation - Chronic anticoagulation with Xarelto, Hypertension Denies: Coronary Artery Disease, Myocardial Infarction Pulmonary Medical History: Reports: Other - Interstitial Lung Disease Denies: Asthma, Chronic Obstructive Pulmonary Disease (COPD) EENT Medical History: Denies: Cataracts, Ears - Hearing aids Neurological Medical History: Denies: Hemorrhagic CVA, Ischemic CVA, Seizures Endocrine Medical History: Denies: Diabetes Mellitus Type 1, Diabetes Mellitus Type 2, Hyperthyroidism, Hypothyroidism Renal/ Medical History: Denies: Chronic Kidney Disease, Nephrolithiasis Malignancy Medical History: Reports: None, Skin Cancer GI Medical History: Reports: Gastroesophageal Reflux Disease Denies: Cirrhosis, Hepatitis Musculoskeltal Medical History: Denies: Arthritis, Gout Skin Medical History: Denies: Eczema, Psoriasis Psychiatric Medical History: Denies: Alcohol Dependency, Substance Abuse, Tobacco Dependency Traumatic Medical History: Reports: None Hematology: Denies: Anemia, Bleeding Tendencies Infectious Medical History: Reports: None Past Surgical History Past Surgical History: Reports: Cardiac Catheterization - ablation, Orthopedic Surgery - Knee surgery, unsuccessful tendon repair left UE, Other - Dental implants and removal of same, skin cancer excisions Social History Lives with: Spouse/Significant other Smoking Status: Former Smoker Electronic Cigarette use?: No Frequency of Alcohol Use: None Hx Recreational Drug Use: No Drugs: None Hx Prescription Drug Abuse: No - Advance Directive Resuscitation Status: Full Code Family History Family History: CAD, Hypertension, Malignancy. denies: DM Parental Family History Reviewed: Yes Children Family History Reviewed: No Sibling(s) Family History Reviewed.: No Medication/Allergy Home Medications: Hydrocodone Bit/Acetaminophen [Hydrocodon-Acetaminophen 5-325] 1 each PO Q4HP PRN #15 tablet 09/30/16 Oxycodone HCl/Acetaminophen [Percocet 7.5-325 mg Tablet] 1 each PO ASDIR PRN #20 tablet 02/24/17 Allergies/Adverse Reactions: No Known Allergies Allergy (Verified 02/24/17 18:00) Review of Systems Constitutional: PRESENT: as per HPI Cardiovascular: PRESENT: chest pain Respiratory: PRESENT: other - No cough Gastrointestinal: PRESENT: other - No pains nor nausea nor vomiting. No diarrhea nor constipation Physical Exam Vital Signs: Temp Pulse Resp BP Pulse Ox 97.8 F 85 18 134/91 H 94 06/28/19 03:00 06/28/19 03:00 06/28/19 03:00 06/28/19 03:00 06/28/19 03:00 Intake & Output 06/27/19 06/28/19 06/29/19 06:59 06:59 06:59 Weight 95.8 kg General appearance: PRESENT: mild distress Eye exam: PRESENT: conjunctiva pink Mouth exam: PRESENT: moist Neck exam: PRESENT: full ROM Respiratory exam: PRESENT: clear to auscultation joaquina Cardiovascular exam: PRESENT: RRR Pulses: PRESENT: normal radial pulses Vascular exam: PRESENT: normal capillary refill GI/Abdominal exam: PRESENT: soft - Nontender Rectal exam: PRESENT: deferred Neurological exam: PRESENT: alert, oriented to person, oriented to time, oriented to situation Psychiatric exam: PRESENT: appropriate affect Skin exam: PRESENT: normal color, warm Results Laboratory Results: 06/27/19 20:00 06/28/19 01:10 06/27/19 06/27/19 06/27/19 20:00 20:00 20:00 WBC 6.9 RBC 4.84 Hgb 15.6 Hct 44.5 MCV 92 MCH 32.2 MCHC 35.0 RDW 14.1 H Plt Count 177 Seg Neutrophils % 68.2 Sodium 136.9 L Potassium 4.1 Chloride 100 Carbon Dioxide 30 Anion Gap 7 BUN 13 Creatinine 0.81 Est GFR ( Amer) > 60 Glucose 96 Calcium 9.1 Magnesium 1.7 Total Bilirubin 0.6 AST 28 Alkaline Phosphatase 58 Total Protein 7.2 Albumin 4.2 Amylase Lipase 1149.6 H TSH 06/27/19 06/28/19 06/28/19 20:16 01:10 01:10 WBC RBC Hgb Hct MCV MCH MCHC RDW Plt Count Seg Neutrophils % Sodium 136.7 L Potassium 4.0 Chloride 102 Carbon Dioxide 32 H Anion Gap 3 L BUN 12 Creatinine 0.78 Est GFR ( Amer) > 60 Glucose 100 Calcium 8.9 Magnesium Total Bilirubin 0.6 AST 27 Alkaline Phosphatase 49 Total Protein 6.6 Albumin 3.9 Amylase 110 Lipase TSH 1.45 06/27/19 06/28/19 06/28/19 20:00 01:10 01:10 Creatine Kinase 50 L CK-MB (CK-2) 1.46 Troponin I < 0.012 < 0.012 Impressions: Chest X-Ray 06/27/19 19:53 IMPRESSION: No acute abnormality is identified. Abdomen/Pelvis CT 06/27/19 21:01 IMPRESSION: No acute intrathoracic abnormality. Distended gallbladder. Otherwise, unremarkable by CT criteria. Correlation with a sonogram could be helpful for further evaluation. Chest CT 06/27/19 21:01 IMPRESSION: No acute intrathoracic abnormality. Distended gallbladder. Otherwise, unremarkable by CT criteria. Correlation with a sonogram could be helpful for further evaluation. Abdomen Ultrasound 06/27/19 22:37 IMPRESSION: Fatty infiltration of the liver Cholelithiasis and sludge without evidence of acute cholecystitis Assessment & Plan - Diagnosis (1) Gallstones Is this a current diagnosis for this admission?: Yes (2) Elevated lipase Is this a current diagnosis for this admission?: Yes - Time Time Spent: 30 to 50 Minutes - Plan Summary Plan Summary: 74-year-old male with abdominal anterior chest pains noted to have gallstones on ultrasound. Denies any nausea no vomiting. No abdominal pains. He did did ate some fatty food around lunchtime yesterday. Lipase is elevated to 1150. His abdomen is soft and nontender. Denies any fever nor chills. Impression: 1 gallstones 2. Elevated lipase etiology possibly due to gallstones but patient is asymptomatic as far as the abdominal findings are concerned at this time. Recommendations: Patient will need cholecystectomy when cleared by medicine. This may be done during this hospitalization or soon after discharge. We can we can see him in follow-up in the surgical clinic if discharged.
--- NOTE | 2019-06-28 07:49 | EKG REPORT ---
SEVERITY:- NORMAL ECG - SINUS RHYTHM : Confirmed by: Néstor Monahan MD 28-Jun-2019 07:49:21
--- NOTE | 2019-06-28 07:50 | EKG REPORT ---
SEVERITY:- NORMAL ECG - SINUS RHYTHM : Confirmed by: Néstor Monahan MD 28-Jun-2019 07:49:42
[2019-06-28 08:51] LABS: CREATINE KINASE MB 1.58 ng/mL (<4.55)
[2019-06-28 08:53] LABS: TROPONIN I < 0.012 ng/mL
[2019-06-28] MEDS: DOCUSATE SODIUM 100 MG CAPSULE PO SCH ×2 (10:00→17:37)
[2019-06-28] MEDS ORDERED: FERUMOXYTOL (ESRD) 510 MG/NS 100 ML IV SCH ×2 (10:00)
--- NOTE | 2019-06-28 10:09 | PDOC CONSULTATION ---
Consultation Consult Date: 06/28/19 Provider Consulted: GWYN SHAHID Consult reason:: Chest pain, acute cholecystitis History of Present Illness Admission Date/PCP: 06/28/19 00:45 FERNY NAVARRO MD Patient complains of: Chest pain History of Present Illness: ISRAEL BALL is a 74 year old male With the following active problems 1. Atrial fibrillation-status post catheter ablation 4 years ago 2. Systemic hypertension 3. Systemic anticoagulation Patient presents with complaints of acute onset midsternal chest pain which started at about 6:30 PM yesterday. Since admission to the hospital his cardiac biomarkers have been negative. His EKG did not show any evidence of myocardial ischemia. Imaging studies and clinical exam are more supportive of acute cholecystitis. Surgical evaluation has been completed. Patient reports that he is fairly physically active. He walks up to 40 minutes/day. He does report interstitial lung disease which limits further exertion and results in some dyspnea. Specifically there is no report of chest pain or anginal limitation of effort. Patient reports a stress test but does not recall how long ago this was. He does not smoke cigarettes. No strong family history reported to me. Past Medical History Cardiac Medical History: Reports: Atrial Fibrillation - Chronic anticoagulation with Xarelto, Hypertension Denies: Coronary Artery Disease, Myocardial Infarction Pulmonary Medical History: Reports: Other - Interstitial Lung Disease Denies: Asthma, Chronic Obstructive Pulmonary Disease (COPD) EENT Medical History: Denies: Cataracts, Ears - Hearing aids Neurological Medical History: Denies: Hemorrhagic CVA, Ischemic CVA, Seizures Endocrine Medical History: Denies: Diabetes Mellitus Type 1, Diabetes Mellitus Type 2, Hyperthyroidism, Hypothyroidism Renal/ Medical History: Denies: Chronic Kidney Disease, Nephrolithiasis Malignancy Medical History: Reports: None, Skin Cancer GI Medical History: Reports: Gastroesophageal Reflux Disease Denies: Cirrhosis, Hepatitis Musculoskeltal Medical History: Denies: Arthritis, Gout Skin Medical History: Denies: Eczema, Psoriasis Psychiatric Medical History: Denies: Alcohol Dependency, Substance Abuse, Tobacco Dependency Traumatic Medical History: Reports: None Hematology: Denies: Anemia, Bleeding Tendencies Infectious Medical History: Reports: None Past Surgical History Past Surgical History: Reports: Cardiac Catheterization - ablation, Orthopedic Surgery - Knee surgery, unsuccessful tendon repair left UE, Other - Dental implants and removal of same, skin cancer excisions Social History Lives with: Spouse/Significant other Smoking Status: Former Smoker Electronic Cigarette use?: No Frequency of Alcohol Use: None Hx Recreational Drug Use: No Drugs: None Hx Prescription Drug Abuse: No - Advance Directive Resuscitation Status: Full Code Family History Family History: CAD, Hypertension, Malignancy. denies: DM Parental Family History Reviewed: No - No familial illnesses reported Children Family History Reviewed: NA Sibling(s) Family History Reviewed.: NA Medication/Allergy Home Medications: Albuterol Sulfate [Proair Hfa Inhalation Aerosol 8.5 gm Mdi] 1 puff IH Q4HP PRN 06/28/19 Alprazolam [Xanax 0.5 mg Tablet] 0.5 mg PO BIDP PRN 06/28/19 Beclomethasone Dipropionate [Qnasl] 10.6 gm NS QID 06/28/19 Fluticasone Propionate [Flovent Hfa] 2 spray NASL Q12 06/28/19 Montelukast Sodium [Singulair 10 mg Tablet] 10 mg PO QHS 06/28/19 Omeprazole 40 mg PO DAILY 06/28/19 Potassium Chloride 10 meq PO BID 06/28/19 Psyllium Husk [Fiber] 0.4 gm PO DAILY 06/28/19 Saccharomyces Boulardii [Probiotic] 250 mg PO DAILY 06/28/19 Spironolactone [Aldactone 25 mg Tablet] 25 mg PO DAILY 06/28/19 Trazodone HCl 100 mg PO QHS 06/28/19 Allergies/Adverse Reactions: No Known Allergies Allergy (Verified 02/24/17 18:00) Review of Systems Constitutional: PRESENT: as per HPI Cardiovascular: PRESENT: chest pain Respiratory: PRESENT: other - Dyspnea with increased activity Physical Exam Vital Signs: Temp Pulse Resp BP Pulse Ox 97.5 F 66 18 145/84 H 90 L 06/28/19 09:04 06/28/19 09:04 06/28/19 09:04 06/28/19 09:04 06/28/19 09:04 Intake & Output 06/27/19 06/28/19 06/29/19 06:59 06:59 06:59 Weight 95.8 kg General appearance: PRESENT: no acute distress, cooperative, well-developed, well-nourished Head exam: PRESENT: atraumatic, normocephalic Eye exam: PRESENT: conjunctiva pink, EOMI Mouth exam: PRESENT: moist Respiratory exam: PRESENT: clear to auscultation joaquina, symmetrical, unlabored Cardiovascular exam: PRESENT: RRR, +S1, +S2 GI/Abdominal exam: PRESENT: soft Rectal exam: PRESENT: deferred Musculoskeletal exam: PRESENT: normal inspection Neurological exam: PRESENT: alert, awake, oriented to person, oriented to place, oriented to time, oriented to situation Psychiatric exam: PRESENT: appropriate affect Skin exam: PRESENT: dry, intact, normal color Results Laboratory Results: 06/27/19 20:00 06/28/19 01:10 06/27/19 06/27/19 06/27/19 20:00 20:00 20:00 WBC 6.9 RBC 4.84 Hgb 15.6 Hct 44.5 MCV 92 MCH 32.2 MCHC 35.0 RDW 14.1 H Plt Count 177 Seg Neutrophils % 68.2 Sodium 136.9 L Potassium 4.1 Chloride 100 Carbon Dioxide 30 Anion Gap 7 BUN 13 Creatinine 0.81 Est GFR ( Amer) > 60 Glucose 96 Calcium 9.1 Magnesium 1.7 Total Bilirubin 0.6 AST 28 Alkaline Phosphatase 58 Total Protein 7.2 Albumin 4.2 Amylase Lipase 1149.6 H TSH 06/27/19 06/28/19 06/28/19 20:16 01:10 01:10 WBC RBC Hgb Hct MCV MCH MCHC RDW Plt Count Seg Neutrophils % Sodium 136.7 L Potassium 4.0 Chloride 102 Carbon Dioxide 32 H Anion Gap 3 L BUN 12 Creatinine 0.78 Est GFR ( Amer) > 60 Glucose 100 Calcium 8.9 Magnesium Total Bilirubin 0.6 AST 27 Alkaline Phosphatase 49 Total Protein 6.6 Albumin 3.9 Amylase 110 Lipase TSH 1.45 06/27/19 06/28/19 06/28/19 20:00 01:10 01:10 Creatine Kinase 50 L CK-MB (CK-2) 1.46 Troponin I < 0.012 < 0.012 06/28/19 06/28/19 07:47 07:47 Creatine Kinase 47 L CK-MB (CK-2) 1.58 Troponin I < 0.012 EKG Comments: Twelve-lead EKG. Independently reviewed by me. Twelve-lead EKG for 2019 Independently viewed by me. Sinus rhythm, normal AV conduction, QTC is 420 ms Impressions: Chest X-Ray 06/27/19 19:53 IMPRESSION: No acute abnormality is identified. Abdomen/Pelvis CT 06/27/19 21:01 IMPRESSION: No acute intrathoracic abnormality. Distended gallbladder. Otherwise, unremarkable by CT criteria. Correlation with a sonogram could be helpful for further evaluation. Chest CT 06/27/19 21:01 IMPRESSION: No acute intrathoracic abnormality. Distended gallbladder. Otherwise, unremarkable by CT criteria. Correlation with a sonogram could be helpful for further evaluation. Abdomen Ultrasound 06/27/19 22:37 IMPRESSION: Fatty infiltration of the liver Cholelithiasis and sludge without evidence of acute cholecystitis Assessment & Plan - Diagnosis (1) Chest pain Qualifiers: Chest pain type: unspecified Qualified Code(s): R07.9 - Chest pain, unspecified Is this a current diagnosis for this admission?: Yes Plan: Chest pain is positional in nature. Acute onset and persistent nature without relation to exertion or activity Cardiac biomarkers are negative EKG without evidence of myocardial ischemia Paucity of risk factors for coronary artery disease other than hypertension and age. Chest pain is likely on account of ongoing acute cholecystitis. (2) Chronic atrial fibrillation Is this a current diagnosis for this admission?: Yes Plan: Presently on systemic anticoagulation with rivaroxaban. If need be this can be interrupted for planned surgical procedure approximately 2 to 3 days prior to the date of surgery. Should be resumed when feasible. (3) Chronic anticoagulation Is this a current diagnosis for this admission?: Yes (4) Preop cardiovascular exam Plan: Patient is an acceptable risk for planned surgery if necessary without further re-stratification Patient is easily able to do more than 4 mets in terms of daily activity. There is no report of angina Cardiac biomarkers are negative and EKG is without evidence for myocardial ischemia Should proceed with usual precautions. Systemic anticoagulation can be interrupted if necessary further surgery by stopping rivaroxaban 2 to 3 days prior to the surgery and should be resumed when feasible.
[2019-06-28] MEDS ORDERED: IBUPROFEN 800 MG TABLET PO PRN (14:13)
[2019-06-28 14:19] LABS: CREATINE KINASE MB 1.35 ng/mL (<4.55); TROPONIN I 0.014 ng/mL
[2019-06-28] MEDS ORDERED: RIVAROXABAN 10 MG TABLET PO SCH (17:00)
[2019-06-29 05:01] LABS: HEMATOCRIT 44.9 % (37.9-51.0); HEMOGLOBIN 15.7 g/dL (13.5-17.0); MEAN CORPUSCULAR HEMOGLOBIN 32.3 pg (27.0-33.4); MEAN CORPUSCULAR HGB CONC 34.9 g/dL (32.0-36.0); MEAN CORPUSCULAR VOLUME 93 fl (80-97); PLATELET COUNT 177 10^3/uL (150-450); RED BLOOD COUNT 4.85 10^6/uL (4.35-5.55); RED CELL DISTRIBUTION WIDTH 14.1 % (11.5-14.0); WHITE BLOOD COUNT 8.7 10^3/uL (4.0-10.5)
[2019-06-29] MEDS: PANTOPRAZOLE SODIUM 40 MG TABLET.DR PO SCH ×2 (05:26→16:29)
[2019-06-29 05:32] LABS: AMYLASE 59 U/L (30-110); CHOLESTEROL 107.59 mg/dL (0-200); TRIGLYCERIDES 106 mg/dL (<150)
[2019-06-29 05:44] LABS: DIRECT LDL 62 mg/dL (<100)
[2019-06-29 05:51] LABS: FREE T3 2.99 pg/mL (2.77-5.27)
[2019-06-29 06:05] LABS: THYROID STIMULATING HORMONE 1.04 uIU/mL (0.47-4.68)
--- NOTE | 2019-06-29 07:18 | EKG REPORT ---
SEVERITY:- NORMAL ECG - SINUS RHYTHM : Confirmed by: Néstor Monahan MD 29-Jun-2019 07:16:39
[2019-06-29] MEDS: DOCUSATE SODIUM 100 MG CAPSULE PO SCH ×2 (09:21→17:25)
--- NOTE | 2019-06-29 10:50 | PDOC PROGRESS REPORT ---
Subjective Progress Note for:: 06/29/19 Subjective:: Patient was seen and examined. Seems comfortable. Endorses mild central sternal pain. N.p.o. for possible surgery today. Has been off rivaroxaban since 06/25/2019. This is per patient. Reason For Visit: CHEST PAIN,ELEVATED LIPASE LEVEL Physical Exam Vital Signs: Temp Pulse Resp BP Pulse Ox 97.6 F 77 18 136/91 H 93 06/29/19 07:19 06/29/19 07:19 06/29/19 07:19 06/29/19 07:19 06/29/19 07:19 Intake & Output 06/28/19 06/29/19 06/30/19 06:59 06:59 06:59 Intake Total 400 Balance 400 Weight 95.8 kg 92.6 kg General appearance: PRESENT: no acute distress, cooperative, well-developed, well-nourished Head exam: PRESENT: atraumatic, normocephalic Eye exam: PRESENT: conjunctiva pink Mouth exam: PRESENT: moist Respiratory exam: PRESENT: clear to auscultation joaquina, symmetrical, unlabored Cardiovascular exam: PRESENT: RRR, +S1, +S2 Pulses: PRESENT: normal radial pulses GI/Abdominal exam: PRESENT: soft Rectal exam: PRESENT: deferred Neurological exam: PRESENT: alert, awake, oriented to person, oriented to place, oriented to time, oriented to situation Psychiatric exam: PRESENT: appropriate affect Skin exam: PRESENT: intact, normal color Results Laboratory Results: 06/29/19 04:11 06/28/19 01:10 06/29/19 06/29/19 06/29/19 04:11 04:11 04:11 WBC 8.7 RBC 4.85 Hgb 15.7 Hct 44.9 MCV 93 MCH 32.3 MCHC 34.9 RDW 14.1 H Plt Count 177 Magnesium 1.9 Triglycerides 106 Cholesterol 107.59 LDL Cholesterol Direct 62 VLDL Cholesterol 21.0 HDL Cholesterol 31 L Amylase 59 Lipase 135.0 TSH 1.04 Free T3 pg/mL 2.99 06/27/19 06/28/19 06/28/19 20:00 01:10 01:10 Creatine Kinase 50 L CK-MB (CK-2) 1.46 Troponin I < 0.012 < 0.012 04/15/20 04/15/20 04/15/20 07:47 07:47 13:23 Creatine Kinase 47 L 44 L CK-MB (CK-2) 1.58 Troponin I < 0.012 06/28/19 13:23 Creatine Kinase CK-MB (CK-2) 1.35 Troponin I 0.014 Impressions: Chest X-Ray 06/27/19 19:53 IMPRESSION: No acute abnormality is identified. Abdomen/Pelvis CT 06/27/19 21:01 IMPRESSION: No acute intrathoracic abnormality. Distended gallbladder. Otherwise, unremarkable by CT criteria. Correlation with a sonogram could be helpful for further evaluation. Chest CT 06/27/19 21:01 IMPRESSION: No acute intrathoracic abnormality. Distended gallbladder. Otherwise, unremarkable by CT criteria. Correlation with a sonogram could be helpful for further evaluation. Abdomen Ultrasound 06/27/19 22:37 IMPRESSION: Fatty infiltration of the liver Cholelithiasis and sludge without evidence of acute cholecystitis Assessment & Plan - Diagnosis (1) Chest pain Qualifiers: Chest pain type: unspecified Qualified Code(s): R07.9 - Chest pain, unspecified Is this a current diagnosis for this admission?: Yes Plan: Unlikely due to myocardial ischemia Likely due to cholelithiasis and acute cholecystitis Cardiac biomarkers are negative Plan for surgery today (2) Chronic atrial fibrillation Is this a current diagnosis for this admission?: Yes Plan: Status post catheter ablation and maintaining sinus rhythm Rivaroxaban has been discontinued in anticipation of surgery. Should be resumed once surgery has been completed (3) Chronic anticoagulation Is this a current diagnosis for this admission?: Yes Plan: Was on rivaroxaban for atrial fibrillation and thromboembolic stroke prophylaxis. Medication has been stopped since Wednesday. Should be resumed as soon as feasible post surgery. (4) Preop cardiovascular exam Plan: Acceptable cardiac risk without further re-stratification Should proceed with usual precautions.
[2019-06-29] MEDS ORDERED: METOCLOPRAMIDE HCL INJ/PF 10 MG/2 ML SDV ONE (11:26)
[2019-06-29] MEDS ORDERED: ONDANSETRON HCL INJ/PF 4 MG/2 ML SDV ONE (11:26)
[2019-06-29] MEDS ORDERED: GLYCOPYRROLATE 1 MG/5 ML VIAL ONE (11:26)
[2019-06-29] MEDS ORDERED: KETOROLAC TROMETHAMINE 60 MG/2 ML SDV ONE (11:26)
[2019-06-29] MEDS ORDERED: DEXAMETHASONE SOD PHOSPHATE INJ 4 MG/1 ML VIAL ONE (11:26)
[2019-06-29] MEDS ORDERED: NEOSTIGMINE METHYLSULFATE 10 MG/10 ML VIAL ONE (11:26)
--- NOTE | 2019-06-29 14:52 | PDOC PROGRESS REPORT ---
Subjective Progress Note for:: 06/29/19 Subjective:: No adverse events overnight. No new complaints. No chest pain or shortness of breath. He is n.p.o. awaiting his cholecystectomy. No abdominal pain at this time. Reason For Visit: CHEST PAIN,ELEVATED LIPASE LEVEL Physical Exam Vital Signs: Temp Pulse Resp BP Pulse Ox 98.0 F 74 17 135/80 H 96 06/29/19 11:33 06/29/19 11:33 06/29/19 11:33 06/29/19 11:33 06/29/19 11:33 Intake & Output 06/28/19 06/29/19 06/30/19 06:59 06:59 06:59 Intake Total 400 Balance 400 Weight 95.8 kg 92.6 kg General appearance: PRESENT: no acute distress, cooperative Respiratory exam: PRESENT: clear to auscultation joaquina, symmetrical, unlabored. ABSENT: accessory muscle use, chest wall tenderness, crackles, prolonged expiratory phas, retraction, rhonchi, tachypnea, wheezes Cardiovascular exam: PRESENT: RRR, +S1, +S2 Pulses: PRESENT: normal carotid pulses Vascular exam: PRESENT: normal capillary refill GI/Abdominal exam: PRESENT: normal bowel sounds, soft. ABSENT: distended, guarding, rebound, tenderness Extremities exam: ABSENT: clubbing, pedal edema Musculoskeletal exam: PRESENT: normal inspection. ABSENT: deformity Neurological exam: PRESENT: alert, awake, oriented to person, oriented to place, oriented to situation Psychiatric exam: PRESENT: appropriate affect, normal mood Skin exam: PRESENT: dry, warm Results Laboratory Results: 06/29/19 04:11 06/28/19 01:10 06/29/19 06/29/19 06/29/19 04:11 04:11 04:11 WBC 8.7 RBC 4.85 Hgb 15.7 Hct 44.9 MCV 93 MCH 32.3 MCHC 34.9 RDW 14.1 H Plt Count 177 Magnesium 1.9 Triglycerides 106 Cholesterol 107.59 LDL Cholesterol Direct 62 VLDL Cholesterol 21.0 HDL Cholesterol 31 L Amylase 59 Lipase 135.0 TSH 1.04 Free T3 pg/mL 2.99 06/27/19 06/28/19 06/28/19 20:00 01:10 01:10 Creatine Kinase 50 L CK-MB (CK-2) 1.46 Troponin I < 0.012 < 0.012 06/28/19 06/28/19 06/28/19 07:47 07:47 13:23 Creatine Kinase 47 L 44 L CK-MB (CK-2) 1.58 Troponin I < 0.012 06/28/19 13:23 Creatine Kinase CK-MB (CK-2) 1.35 Troponin I 0.014 Impressions: Chest X-Ray 06/27/19 19:53 IMPRESSION: No acute abnormality is identified. Abdomen/Pelvis CT 06/27/19 21:01 IMPRESSION: No acute intrathoracic abnormality. Distended gallbladder. Otherwise, unremarkable by CT criteria. Correlation with a sonogram could be helpful for further evaluation. Chest CT 06/27/19 21:01 IMPRESSION: No acute intrathoracic abnormality. Distended gallbladder. Otherwise, unremarkable by CT criteria. Correlation with a sonogram could be helpful for further evaluation. Abdomen Ultrasound 06/27/19 22:37 IMPRESSION: Fatty infiltration of the liver Cholelithiasis and sludge without evidence of acute cholecystitis Assessment and Plan - Diagnosis (1) Chest pain Qualifiers: Chest pain type: unspecified Qualified Code(s): R07.9 - Chest pain, unspecified Is this a current diagnosis for this admission?: Yes Plan: Think it was more likely abdominal pain related to him passing a gallstone. Troponins have been negative. No EKG changes. (2) Chronic anticoagulation Is this a current diagnosis for this admission?: Yes Plan: This is been held pending his cholecystectomy. Will likely resume postoperatively. (3) Gallstones Is this a current diagnosis for this admission?: Yes Plan: He is going for cholecystectomy today. We will follow-up surgery's recommendations postoperatively. - Plan Summary Summary: Patient is admitted observation status on the telemetry floor. He will receive routine supportive and symptomatic cares. Serial cardiac enzymes will be performed. Serial amylase and lipase determinations will be performed. A cardiology consultation with Dr. Loera will be obtained. Patient will use morphine sulfate 2 to 4 mg IV every 2 hours as needed for control of chest pain. He will use Ativan 1 mg IV every 4 hours as needed anxiety or restlessness. CBC's, metabolic profiles, magnesium levels and repeat EKG's will be performed as required. He will be placed on a cardiac diet. A routine surgical consultation will be obtained with Dr. Peters for future management of the patient's cholelithiasis. - Time Time Spent with patient: 15-24 minutes
[2019-06-29] MEDS ORDERED: HYDROMORPHONE HCL INJ/PF 2 MG/ML AMPULE ONE (16:01)
[2019-06-29] MEDS ORDERED: LIDOCAINE 2% INJ-PF (100 MG/5 ML) SYRINGE ONE (16:01)
[2019-06-29] MEDS ORDERED: MIDAZOLAM 2 MG/2 ML INJ ONE (16:01)
[2019-06-29] MEDS ORDERED: PROPOFOL INJ 200 MG/20 ML VIAL IV ONE (16:02)
[2019-06-29] MEDS ORDERED: BUPIVACAINE HCL 0.5%-EPI 1:200000 INJ/PF 30 ML VIAL ONE (18:01)
[2019-06-29] MEDS ORDERED: MEPERIDINE HCL/PF INJ 25 MG/1 ML DISP.SYRIN IV PRN (18:47)
[2019-06-29] MEDS ORDERED: OXYCODONE-ACETAMINOPHEN 5-325 MG TABLET PO PRN ×2 (18:47)
[2019-06-29] MEDS ORDERED: FENTANYL CITRATE INJ/PF 100 MCG/2 ML AMPUL IV PRN ×3 (18:47)
[2019-06-29] MEDS ORDERED: DIPHENHYDRAMINE HCL 50 MG/ML VIAL IV PRN (18:47)
[2019-06-29] MEDS ORDERED: PROMETHAZINE HCL INJ 25 MG/1 ML VIAL IV PRN ×2 (18:47)
[2019-06-29] MEDS ORDERED: ONDANSETRON HCL INJ/PF 4 MG/2 ML SDV IV PRN (18:47)
[2019-06-29] MEDS ORDERED: FENTANYL CITRATE INJ/PF 100 MCG/2 ML AMPUL ONE (18:54)
--- NOTE | 2019-06-29 19:56 | Operative Report ---
Operative Report DATE OF SURGERY: 06/29/19 PREOPERATIVE DIAGNOSIS: Cholelithiasis. Gallstone pancreatitis POSTOPERATIVE DIAGNOSIS: Cholelithiasis. Acute cholecystitis. Gallstone pancreatitis OPERATION: Laparoscopic cholecystectomy SURGEON: BIBI CHAIDEZ ANESTHESIA: GA TISSUE REMOVED OR ALTERED: Gall bladder COMPLICATIONS: None ESTIMATED BLOOD LOSS: 30 cc QUANTITATIVE BLOOD LOSS: 30 INTRAOPERATIVE FINDINGS: Thickened gallbladder wall with markedly distended gallbladder with stones PROCEDURE: After adequate general anesthesia patient was placed in supine position and the abdomen prepped and draped in the usual sterile fashion. Appropriate timeout was then called. Next an infraumbilical elliptical incision was made in the fascia identified grasped with Hawthorn clamps divided between the Loretta clamps. The abdominal cavity was then digitally palpated and no evidence of adhesions. Next a Thompson trocar was then inserted through the fascia to the abdominal cavity and CO2 insufflated to a pressure of 15 mmHg. Next a camera was then inserted and the 3 other trochars were placed a 12 mm in the epigastric and 2 5 mm in the right upper quadrant. The gallbladder was then identified and noted to be quite tense and unable to be grasped by a grasper. Therefore, a it was then decompressed by placing a long needle on the fundus of the gallbladder and suctioning out at least 40 cc of greenish bile. Next the fundus of the gallbladder was subsequently grasped as well as the infundibulum. Cystic duct and artery were then dissected. Cystic duct just slightly dilated. After the angle of safety was visualized the cystic duct was then clipped with hemoclips 2 proximal and 1 distal close to the gallbladder and divided between the distal clips. Cystic artery also clipped with hemoclips and divided between the gallbladder and the clip with the use of harmonic angélica. The gallbladder was then lifted off the liver bed with the use of harmonic angélica and also with blunt peeling off of the gallbladder on the liver. Gallbladder was then completely removed and placed in an Endobag and pulled out through the umbilical port. There were multiple small stones palpated in the gallbladder. The Thompson trocar was then placed back and the liver bed was inspected no evidence of active bleeding noted there was some clots that were suctioned out. Couple of pieces of Surgicel placed over the liver bed for assurance of hemostasis. All the trochars were then removed and CO2 allowed to come out of the trocar sites. The fascial defect in the infraumbilical area was then closed with a [id number] suture using 0 Vicryl and the 2 stay sutures tied together for better closure. It was subsequently instilled with Marcaine. The skin incisions also instilled with Marcaine. The skin incisions were then closed with running subcuticular 4-0 Vicryl undyed. Steri-Strips placed over the operative sites. Needle instrument sponge count were all correct estimated blood loss about 30 cc. Patient tolerated procedure well then brought to PACU in satisfactory condition.
[2019-06-29] MEDS ORDERED: KETOROLAC TROMETHAMINE INJ/PF 30 MG/1 ML SDV IV SCH (22:00)
[2019-06-30] MEDS: ACETAMINOPHEN 325 MG TABLET PO PRN (04:52)
[2019-06-30] MEDS: PANTOPRAZOLE SODIUM 40 MG TABLET.DR PO SCH (05:01)
[2019-06-30] MEDS: DOCUSATE SODIUM 100 MG CAPSULE PO SCH (10:21)
--- NOTE | 2019-06-30 10:45 | PDOC PROGRESS REPORT ---
Subjective Progress Note for:: 06/30/19 Subjective:: Some incisional pains. The chest discomfort that he had preop is gone. In retrospect he claims that he had off and on mild chest and back discomfort most likely related to his gallstones with since he did not know prior to surgery. Reason For Visit: CHEST PAIN,ELEVATED LIPASE LEVEL Physical Exam Vital Signs: Temp Pulse Resp BP Pulse Ox 98.3 F 65 18 104/63 96 06/30/19 07:34 06/30/19 07:34 06/30/19 07:34 06/30/19 07:34 06/30/19 07:34 Intake & Output 06/29/19 06/30/19 07/01/19 06:59 06:59 06:59 Intake Total 400 1640 Output Total 20 Balance 400 1620 Weight 92.6 kg 90.9 kg Exam: Abdomen is soft. Incision sites are dry. Mild ecchymosis along the trocar sites Results Laboratory Results: 06/29/19 04:11 06/28/19 01:10 06/27/19 06/28/19 06/28/19 20:00 01:10 01:10 Creatine Kinase 50 L CK-MB (CK-2) 1.46 Troponin I < 0.012 < 0.012 06/28/19 06/28/19 06/28/19 07:47 07:47 13:23 Creatine Kinase 47 L 44 L CK-MB (CK-2) 1.58 Troponin I < 0.012 06/28/19 13:23 Creatine Kinase CK-MB (CK-2) 1.35 Troponin I 0.014 Impressions: Chest X-Ray 06/27/19 19:53 IMPRESSION: No acute abnormality is identified. Abdomen/Pelvis CT 06/27/19 21:01 IMPRESSION: No acute intrathoracic abnormality. Distended gallbladder. Otherwise, unremarkable by CT criteria. Correlation with a sonogram could be helpful for further evaluation. Chest CT 06/27/19 21:01 IMPRESSION: No acute intrathoracic abnormality. Distended gallbladder. Otherwise, unremarkable by CT criteria. Correlation with a sonogram could be helpful for further evaluation. Abdomen Ultrasound 06/27/19 22:37 IMPRESSION: Fatty infiltration of the liver Cholelithiasis and sludge without evidence of acute cholecystitis Assessment & Plan - Diagnosis (1) Gallstones Is this a current diagnosis for this admission?: Yes (2) Elevated lipase Is this a current diagnosis for this admission?: Yes - Time Critical Time spent with patient: 15-24 minutes - Plan Summary Plan Summary: Patient is doing well post laparoscopic cholecystectomy yesterday. He could be discharged today from surgical viewpoint. Instructions given to the patient. He can just take Tylenol PRN for pain. Arrangements will be made for him to be followed up in the surgical clinic in 2 weeks. She he was also advised not to do any lifting more than 10 to 15 pounds until seen in the clinic. He can also shower.
[2019-06-30 12:50] VITALS: BP 132/82
--- NOTE | 2019-06-30 16:40 | PDOC DISCHARGE SUMMARY ---
Impression - Admit/DC Date/PCP Admission Date/Primary Care Provider: 06/28/19 00:45 FERNY NAVARRO MD Discharge Date: 06/30/19 - Discharge Diagnosis (1) Chest pain Is this a current diagnosis for this admission?: Yes (2) Chronic anticoagulation Is this a current diagnosis for this admission?: Yes (3) Gallstones Is this a current diagnosis for this admission?: Yes - Assessment Summary: Patient is admitted observation status on the telemetry floor. He will receive routine supportive and symptomatic cares. Serial cardiac enzymes will be performed. Serial amylase and lipase determinations will be performed. A cardiology consultation with Dr. Loera will be obtained. Patient will use morphine sulfate 2 to 4 mg IV every 2 hours as needed for control of chest pain. He will use Ativan 1 mg IV every 4 hours as needed anxiety or restlessness. CBC's, metabolic profiles, magnesium levels and repeat EKG's will be performed as required. He will be placed on a cardiac diet. A routine surgical consultation will be obtained with Dr. Peters for future management of the patient's cholelithiasis. - Additional Information Resuscitation Status: Full Code Discharge Diet: Cardiac Discharge Activity: No Lifting Over 10 Pounds, No Lifting/Push/Pulling, No tub bath, Walk Frequently Referrals: [facility] [Provider Group] - 07/11/19 1:15 pm Home Medications: Albuterol Sulfate [Proair HFA Inhalation Aerosol 8.5 gm MDI] 1 puff IH Q4HP PRN 06/28/19 Alprazolam [Xanax 0.5 mg Tablet] 0.5 mg PO BIDP PRN 06/28/19 Beclomethasone Dipropionate [Qnasl] 1 spray NASL QID 06/28/19 Fluticasone Propionate [Flovent Hfa 110 Mcg Inhalation Aerosol 12 gm] 2 puff IH DAILY PRN 06/28/19 Montelukast Sodium [Singulair 10 mg Tablet] 10 mg PO QHS 06/28/19 Omeprazole 40 mg PO DAILY 06/28/19 Potassium Citrate [Potassium Citrate ER] 10 meq PO BID 06/28/19 Psyllium Husk [Fiber] 0.4 gm PO DAILY 06/28/19 Rivaroxaban [Xarelto] 20 mg PO DAILY 06/28/19 Saccharomyces Boulardii [Probiotic] 250 mg PO DAILY 06/28/19 Spironolactone [Aldactone 25 mg Tablet] 25 mg PO DAILY 06/28/19 Trazodone HCl 100 mg PO QHS 06/28/19 Vortioxetine Hydrobromide [Trintellix] 20 mg PO DAILY 06/28/19 Acetaminophen [Tylenol 325 mg Tablet] 650 mg PO Q4HP PRN tablet 06/30/19 Ibuprofen [Motrin 800 mg Tablet] 800 mg PO Q8HP PRN tablet 06/30/19 History of Present Illiness History of Present Illness: ISRAEL BALL is a 74 year old male presented the emergency room with acute chest pain. He admits developing intermittent episodic knot-like tightness in his central chest 3 hours prior to his emergency room visit. The pain/tightness did not radiate and varied from moderate to severe in intensity from 1 episode to another. He admits a total of ~20 episodes each lasting for 5 to 10 minutes. He admits the associated symptom of decreased appetite but denies all other associated or accompanying signs and symptoms. He denies prior similar episodes. He has not identified any aggravating or ameliorating factors for his chest pain/tightness. In the emergency room he was found to have an EKG not demonstrating acute myocardial ischemia or injury and cardiac enzymes in the normal range. Further evaluation ER revealed cholelithiasis without evidence of cholecystitis and elevated lipase at 1150. Patient was subsequently admitted to observation status for further evaluation treatment. Hospital Course Hospital Course: He ruled out for any kind of cardiac event, and it turns out his chest pain was most likely related to him passing a gallstone. His lipase was initially elevated and his subsequent lipases were normal, and his pain was gone, indicating that he passed a gallstone. He was noted to have cholelithiasis and it was decided to perform a cholecystectomy. He tolerated the procedure well. He was eating and drinking without difficulty and his pain was minimal. He will follow-up with general surgery in 10 to 14 days. His labs and examination were reassuring he was discharged in stable condition. Physical Exam Vital Signs: Temp Pulse Resp BP Pulse Ox 98.3 F 65 18 132/82 H 96 06/30/19 12:47 06/30/19 12:47 06/30/19 12:47 06/30/19 12:47 06/30/19 12:47 Intake & Output 06/29/19 06/30/19 07/01/19 06:59 06:59 06:59 Intake Total 400 1640 Output Total 20 Balance 400 1620 Weight 92.6 kg 90.9 kg General appearance: PRESENT: no acute distress, cooperative Respiratory exam: PRESENT: clear to auscultation joaquina, symmetrical, unlabored. ABSENT: accessory muscle use, chest wall tenderness, crackles, prolonged expiratory phas, retraction, rhonchi, tachypnea, wheezes Cardiovascular exam: PRESENT: RRR, +S1, +S2 Pulses: PRESENT: normal carotid pulses Vascular exam: PRESENT: normal capillary refill GI/Abdominal exam: PRESENT: normal bowel sounds, soft. ABSENT: distended, guarding, rebound, tenderness Extremities exam: ABSENT: clubbing, pedal edema Musculoskeletal exam: PRESENT: normal inspection. ABSENT: deformity Neurological exam: PRESENT: alert, awake, oriented to person, oriented to place, oriented to situation Psychiatric exam: PRESENT: appropriate affect, normal mood Skin exam: PRESENT: dry, warm Results Laboratory Results: WBC 8.7 10^3/uL (4.0-10.5) 06/29/19 04:11 RBC 4.85 10^6/uL (4.35-5.55) 06/29/19 04:11 Hgb 15.7 g/dL (13.5-17.0) 06/29/19 04:11 Hct 44.9 % (37.9-51.0) 06/29/19 04:11 MCV 93 fl (80-97) 06/29/19 04:11 MCH 32.3 pg (27.0-33.4) 06/29/19 04:11 MCHC 34.9 g/dL (32.0-36.0) 06/29/19 04:11 RDW 14.1 % (11.5-14.0) H 06/29/19 04:11 Plt Count 177 10^3/uL (150-450) 06/29/19 04:11 Lymph % (Auto) 22.7 % (13-45) 06/27/19 20:00 Karnes % (Auto) 6.9 % (3-13) 06/27/19 20:00 Eos % (Auto) 1.5 % (0-6) 06/27/19 20:00 Baso % (Auto) 0.7 % (0-2) 06/27/19 20:00 Absolute Neuts (auto) 4.7 10^3/uL (1.7-8.2) 06/27/19 20:00 Absolute Lymphs (auto) 1.6 10^3/uL (0.5-4.7) 06/27/19 20:00 Absolute Monos (auto) 0.5 10^3/uL (0.1-1.4) 06/27/19 20:00 Absolute Eos (auto) 0.1 10^3/uL (0.0-0.6) 06/27/19 20:00 Absolute Basos (auto) 0.0 10^3/uL (0.0-0.2) 06/27/19 20:00 Seg Neutrophils % 68.2 % (42-78) 06/27/19 20:00 Sodium 136.7 mmol/L (137-145) L 06/28/19 01:10 Potassium 4.0 mmol/L (3.6-5.0) 06/28/19 01:10 Chloride 102 mmol/L (98-107) 06/28/19 01:10 Carbon Dioxide 32 mmol/L (22-30) H 06/28/19 01:10 Anion Gap 3 (5-19) L 06/28/19 01:10 BUN 12 mg/dL (7-20) 06/28/19 01:10 Creatinine 0.78 mg/dL (0.52-1.25) 06/28/19 01:10 Est GFR ( Amer) > 60 (>60) 06/28/19 01:10 Est GFR (MDRD) Non-Af > 60 (>60) 06/28/19 01:10 Glucose 100 mg/dL (75-110) 06/28/19 01:10 Calcium 8.9 mg/dL (8.4-10.2) 06/28/19 01:10 Magnesium 1.9 mg/dL (1.6-2.3) 06/29/19 04:11 Total Bilirubin 0.6 mg/dL (0.2-1.3) 06/28/19 01:10 Direct Bilirubin 0.0 mg/dL (0.0-0.4) 06/28/19 01:10 Neonat Total Bilirubin Not Reportable 06/28/19 01:10 Neonat Direct Bilirubin Not Reportable 06/28/19 01:10 Neonat Indirect Bili Not Reportable 06/28/19 01:10 AST 27 U/L (17-59) 06/28/19 01:10 ALT 27 U/L (<50) 06/28/19 01:10 Alkaline Phosphatase 49 U/L (38-126) 06/28/19 01:10 Creatine Kinase 44 U/L (55-170) L 06/28/19 13:23 CK-MB (CK-2) 1.35 ng/mL (<4.55) 06/28/19 13:23 Troponin I 0.014 ng/mL 06/28/19 13:23 Total Protein 6.6 g/dL (6.3-8.2) 06/28/19 01:10 Albumin 3.9 g/dL (3.5-5.0) 06/28/19 01:10 Triglycerides 106 mg/dL (<150) 06/29/19 04:11 Cholesterol 107.59 mg/dL (0-200) 06/29/19 04:11 LDL Cholesterol Direct 62 mg/dL (<100) 06/29/19 04:11 VLDL Cholesterol 21.0 mg/dL (10-31) 06/29/19 04:11 HDL Cholesterol 31 mg/dL (>40) L 06/29/19 04:11 Amylase 59 U/L (30-110) 06/29/19 04:11 Lipase 135.0 U/L (23-300) 06/29/19 04:11 TSH 1.04 uIU/mL (0.47-4.68) 06/29/19 04:11 Free T3 pg/mL 2.99 pg/mL (2.77-5.27) 06/29/19 04:11 06/27/19 06/28/19 06/28/19 20:00 01:10 07:47 CK-MB (CK-2) 1.46 1.58 Troponin I < 0.012 < 0.012 < 0.012 06/28/19 13:23 CK-MB (CK-2) 1.35 Troponin I 0.014 Impressions: Chest X-Ray 06/27/19 19:53 IMPRESSION: No acute abnormality is identified. Abdomen/Pelvis CT 04/14/20 21:01 IMPRESSION: No acute intrathoracic abnormality. Distended gallbladder. Otherwise, unremarkable by CT criteria. Correlation with a sonogram could be helpful for further evaluation. Chest CT 06/27/19 21:01 IMPRESSION: No acute intrathoracic abnormality. Distended gallbladder. Otherwise, unremarkable by CT criteria. Correlation with a sonogram could be helpful for further evaluation. Abdomen Ultrasound 06/27/19 22:37 IMPRESSION: Fatty infiltration of the liver Cholelithiasis and sludge without evidence of acute cholecystitis Plan Time Spent: Greater than 30 Minutes Stroke Is this a Stroke Patient?: No Acute Heart Failure - Is this a Heart Failure Patient?: No
== END 2019-06-30 13:17 | disposition home or self-care (01) ==
LOC: ER 19:15 → EH 06-28 00:45 → 4N 06-28 02:57
PROVIDERS: ADMIT Emergency Medicine; ATTEND Family Medicine
DX: R07.89 Other chest pain (principal); K80.10 Calculus of gallbladder with chronic cholecystitis without obstruction; K85.10 Biliary acute pancreatitis without necrosis or infection; I10 Essential (primary) hypertension; I48.20 Chronic atrial fibrillation, unspecified; J84.9 Interstitial pulmonary disease, unspecified; K21.9 Gastro-esophageal reflux disease without esophagitis; R06.00 Dyspnea, unspecified; Z01.810 Encounter for preprocedural cardiovascular examination; K76.0 Fatty (change of) liver, not elsewhere classified; J45.909 Unspecified asthma, uncomplicated; R74.8 Abnormal levels of other serum enzymes; G89.18 Other acute postprocedural pain; Z79.01 Long term (current) use of anticoagulants; Z79.899 Other long term (current) drug therapy; Z85.828 Personal history of other malignant neoplasm of skin; Z87.891 Personal history of nicotine dependence; Z82.49 Family history of ischemic heart disease and other diseases of the circulatory system
CPT/HCPCS: 47562; 93005 ×3; 99285; 96374; 96375; 36415 ×3; 82553; 82150 ×2; 82550; 83690 ×3; 83735 ×2; 84443 ×2; 85025; 85027; 80053 ×2; 84484 ×2; 84481; 80061; 88304 ×2; 71046; 76705; 71260; 74177; 93010 ×3; A9270 ×7; J2250; J3490 ×4; J1100; J1885; J3010; J2001; J2765; J2270; J2710; J1170 ×2; C9113; J2405 ×2; J2704; 790